=== PATIENT | female | born 1935 | race Native Hawaiian/Other Pacific Islander ===

== ENCOUNTER 2016-04-20 09:04 | Inpatient (IN) | payer OTHER | END 2016-05-21 08:00 | disposition still patient (30) | LOC: PAVB 09:04 | PROVIDERS: ADMIT Internal Medicine | DX: Z51.89 Encounter for other specified aftercare (principal) ==

== ENCOUNTER 2016-05-21 09:00 | Inpatient (IN) | payer OTHER | END 2016-06-21 10:55 | disposition still patient (30) | LOC: PAVB 09:00 | PROVIDERS: ADMIT Internal Medicine | DX: Z51.89 Encounter for other specified aftercare (principal) ==

== ENCOUNTER 2016-06-07 09:02 | Outpatient (CLI) | payer OTHER | END 2016-06-07 19:08 | disposition home or self-care (01) | LOC: RAD 09:02 | DX: R13.19 Other dysphagia (principal) ==

== ENCOUNTER 2016-06-21 11:44 | Inpatient (IN) | payer OTHER | END 2016-07-19 12:34 | disposition still patient (30) | LOC: PAVB 11:44 | PROVIDERS: ADMIT Internal Medicine | DX: Z51.89 Encounter for other specified aftercare (principal) ==

== ENCOUNTER 2016-06-27 02:14 | Outpatient (CLI) | payer OTHER | END 2016-06-27 20:08 | disposition home or self-care (01) | LOC: LAB 02:14 | DX: N39.0 Urinary tract infection, site not specified (principal) | CPT/HCPCS: 81000; 87077; 87086; 87088; 87185; 87186 ==

== ENCOUNTER 2016-07-17 14:04 | Outpatient (CLI) | payer OTHER | END 2016-07-18 02:03 | disposition home or self-care (01) | LOC: MAMMO 14:04 | DX: Z12.31 Encounter for screening mammogram for malignant neoplasm of breast (principal) | CPT/HCPCS: G0202-TC ==

== ENCOUNTER 2016-07-19 12:48 | Inpatient (IN) | payer OTHER | END 2016-08-19 08:10 | disposition still patient (30) | LOC: PAVB 12:48 | PROVIDERS: ADMIT Internal Medicine | DX: Z51.89 Encounter for other specified aftercare (principal) ==

== ENCOUNTER 2016-07-20 06:30 | Outpatient (CLI) | payer OTHER | END 2016-07-20 19:28 | disposition home or self-care (01) | LOC: LAB 06:30 | DX: E11.9 Type 2 diabetes mellitus without complications (principal) | CPT/HCPCS: 36415; 83036 ==

== ENCOUNTER 2016-08-08 04:26 | Outpatient (CLI) | payer OTHER ==
[2016-08-08 05:13] LABS: POTASSIUM 4.9 mmol/L (3.6-5.2)
== END 2016-08-08 19:11 | disposition home or self-care (01) ==
LOC: LAB 04:26
PROVIDERS: Internal Medicine
DX: Z51.81 Encounter for therapeutic drug level monitoring (principal)
CPT/HCPCS: 36415; 80048

== ENCOUNTER 2016-08-13 23:52 | Outpatient (CLI) | payer OTHER | END 2016-08-13 23:59 | disposition home or self-care (01) | LOC: LAB 23:52 | DX: N39.0 Urinary tract infection, site not specified (principal) | CPT/HCPCS: 81000; 87077; 87086; 87088; 87185; 87186 ==

== ENCOUNTER 2016-08-18 08:49 | Outpatient (CLI) | payer OTHER ==
[~2016-08-18] VITALS: Ht 167.6 cm; Wt 90.7 kg
[2016-08-18 09:20] VITALS: BP 147/51; TEMP 97.7
== END 2016-08-18 23:55 | disposition home or self-care (01) ==
LOC: INF 08:49 → RAD 08:49 → INF 20:46 → RAD 23:55
DX: N39.0 Urinary tract infection, site not specified (principal)
CPT/HCPCS: 96365; J3370

== ENCOUNTER 2016-08-19 09:07 | Inpatient (IN) | payer OTHER | END 2016-09-18 09:03 | disposition still patient (30) | LOC: PAVB 09:07 → PAVA 09-15 15:50 | PROVIDERS: ADMIT Internal Medicine | DX: Z51.89 Encounter for other specified aftercare (principal) ==

== ENCOUNTER 2016-08-19 09:17 | Outpatient (CLI) | payer OTHER | END 2016-08-19 20:40 | disposition home or self-care (01) | LOC: INF 09:17 | DX: N39.0 Urinary tract infection, site not specified (principal) | CPT/HCPCS: 96365; J3370 ==

== ENCOUNTER 2016-08-20 09:08 | Outpatient (CLI) | payer OTHER | END 2016-08-20 18:58 | disposition home or self-care (01) | LOC: INF 09:08 | DX: N39.0 Urinary tract infection, site not specified (principal) | CPT/HCPCS: 96365; J3370 ==

== ENCOUNTER 2016-08-21 05:01 | Outpatient (CLI) | payer OTHER ==
[~2016-08-21] VITALS: Ht 30.5 cm; Wt 0.5 kg
[2016-08-21 05:58] LABS: POTASSIUM 5.2 mmol/L (3.6-5.2)
[2016-08-21 11:23] VITALS: BP 157/53; TEMP 98.1
== END 2016-08-21 10:15 | disposition home or self-care (01) ==
LOC: LAB 05:01 → INF 05:01
PROVIDERS: Internal Medicine
DX: N39.0 Urinary tract infection, site not specified (principal); I10 Essential (primary) hypertension
CPT/HCPCS: 36415; 80048; 80202; 96365; J3370

== ENCOUNTER 2016-08-22 10:09 | Outpatient (CLI) | payer OTHER ==
[~2016-08-22] VITALS: Ht 167.6 cm; Wt 90.9 kg
[2016-08-22 10:15] VITALS: BP 127/56; TEMP 98.3
[2016-08-22 12:16] VITALS: BP 142/50; TEMP 98.3
== END 2016-08-22 11:09 | disposition home or self-care (01) ==
LOC: INF 10:09
DX: N39.0 Urinary tract infection, site not specified (principal)
CPT/HCPCS: 96365; J3370

== ENCOUNTER 2016-08-24 09:08 | Outpatient (CLI) | payer OTHER ==
[2016-08-24 10:13] LABS: POTASSIUM 5.5 mmol/L (3.6-5.2)
== END 2016-08-24 19:02 | disposition home or self-care (01) ==
LOC: LAB 09:08 → INF 09:08 → LAB 19:02
PROVIDERS: Internal Medicine
DX: N39.0 Urinary tract infection, site not specified (principal); Z51.81 Encounter for therapeutic drug level monitoring
CPT/HCPCS: 80048; 80202

== ENCOUNTER 2016-08-25 09:59 | Outpatient (CLI) | payer OTHER | END 2016-08-25 19:08 | disposition home or self-care (01) | LOC: LAB 09:59 | DX: N39.0 Urinary tract infection, site not specified (principal) | CPT/HCPCS: 80202 ==

== ENCOUNTER 2016-08-26 08:55 | Outpatient (CLI) | payer OTHER | END 2016-08-26 19:05 | disposition home or self-care (01) | LOC: INF 08:55 | DX: N39.0 Urinary tract infection, site not specified (principal) | CPT/HCPCS: 36415; 80202 ==

== ENCOUNTER 2016-08-29 21:20 | Outpatient (CLI) | payer OTHER ==
[2016-08-29 22:17] LABS: PLATELET COUNT 245 K/uL (152-353)
[2016-08-29 22:29] LABS: POTASSIUM 5.5 mmol/L (3.6-5.2)
== END 2016-08-29 22:30 | disposition home or self-care (01) ==
LOC: LAB 21:20
PROVIDERS: Internal Medicine
DX: R03.1 Nonspecific low blood-pressure reading (principal)
CPT/HCPCS: 36415; 80048; 81000; 85027

== ENCOUNTER 2016-09-01 09:27 | Outpatient (CLI) | payer OTHER | END 2016-09-01 20:26 | disposition home or self-care (01) | LOC: LAB 09:27 → US 09:27 | DX: R33.8 Other retention of urine (principal) | CPT/HCPCS: 81000; 87077; 87086; 87088; 87186 ==

== ENCOUNTER 2016-09-06 12:16 | Outpatient (CLI) | payer OTHER | END 2016-09-06 19:06 | disposition home or self-care (01) | LOC: LAB 12:16 | DX: Z16.24 Resistance to multiple antibiotics (principal) | CPT/HCPCS: 87081 ==

== ENCOUNTER 2016-09-18 09:05 | Inpatient (IN) | payer OTHER | END 2016-10-19 08:09 | disposition still patient (30) | LOC: PAVA 09:05 | PROVIDERS: ADMIT Internal Medicine | DX: Z51.89 Encounter for other specified aftercare (principal) | CPT/HCPCS: 81000 ==

== ENCOUNTER 2016-09-18 13:31 | Outpatient (CLI) | payer OTHER | END 2016-09-18 20:02 | disposition home or self-care (01) | LOC: LAB 13:31 | DX: Z85.038 Personal history of other malignant neoplasm of large intestine (principal) | CPT/HCPCS: 82378 ==

== ENCOUNTER 2016-09-22 14:23 | Outpatient (CLI) | payer OTHER | END 2016-09-22 16:00 | disposition home or self-care (01) | LOC: LAB 14:23 | DX: R30.0 Dysuria (principal) | CPT/HCPCS: 87077; 87086; 87088; 87186 ==

== ENCOUNTER 2016-10-06 08:52 | Outpatient (CLI) | payer OTHER | END 2016-10-06 10:00 | disposition home or self-care (01) | LOC: US 08:52 | DX: R10.11 Right upper quadrant pain (principal) ==

== ENCOUNTER 2016-10-16 22:19 | Outpatient (CLI) | payer OTHER ==
[2016-10-16 22:27] LABS: PLATELET COUNT 313 K/uL (152-353)
[2016-10-16 22:58] LABS: POTASSIUM 4.9 mmol/L (3.6-5.2)
== END 2016-10-16 23:00 | disposition home or self-care (01) ==
LOC: LAB 22:19
PROVIDERS: Internal Medicine
DX: N39.0 Urinary tract infection, site not specified (principal); Z01.812 Encounter for preprocedural laboratory examination
CPT/HCPCS: 36415; 80053; 81000; 85027

== ENCOUNTER 2016-10-19 08:16 | Inpatient (IN) | payer OTHER | END 2016-11-18 14:55 | disposition still patient (30) | LOC: PAVA 08:16 | PROVIDERS: ADMIT Internal Medicine | DX: Z51.89 Encounter for other specified aftercare (principal) ==

== ENCOUNTER 2016-10-26 12:02 | Outpatient (CLI) | payer OTHER | END 2016-10-26 13:05 | disposition home or self-care (01) | LOC: LAB 12:02 | DX: D64.9 Anemia, unspecified (principal) | CPT/HCPCS: 82728 ==

== ENCOUNTER 2016-11-08 20:03 | Outpatient (CLI) | payer OTHER | END 2016-11-08 21:05 | disposition home or self-care (01) | LOC: LAB 20:03 | DX: R30.0 Dysuria (principal); R35.0 Frequency of micturition | CPT/HCPCS: 81000; 87088 ==

== ENCOUNTER 2016-11-15 13:16 | Outpatient (CLI) | payer OTHER | END 2016-11-15 19:35 | disposition home or self-care (01) | LOC: LAB 13:16 | DX: R30.0 Dysuria (principal) | CPT/HCPCS: 81000; 87088 ==

== ENCOUNTER 2016-11-18 15:02 | Inpatient (IN) | payer OTHER | END 2016-12-19 08:28 | disposition still patient (30) | LOC: PAVA 15:02 | PROVIDERS: ADMIT Internal Medicine | DX: Z51.89 Encounter for other specified aftercare (principal) ==

== ENCOUNTER 2016-12-13 09:27 | Outpatient (CLI) | payer OTHER | END 2016-12-13 11:00 | disposition home or self-care (01) | LOC: MRI 09:27 | DX: M54.5 Low back pain (principal); M54.16 Radiculopathy, lumbar region ==

== ENCOUNTER 2016-12-18 15:32 | Outpatient (CLI) | payer OTHER | END 2016-12-18 16:45 | disposition home or self-care (01) | LOC: LAB 15:32 | DX: R35.0 Frequency of micturition (principal); R30.0 Dysuria | CPT/HCPCS: 81000; 87077; 87086; 87088; 87186 ==

== ENCOUNTER 2016-12-19 08:45 | Inpatient (IN) | payer OTHER | END 2017-01-19 08:09 | disposition still patient (30) | LOC: PAVA 08:45 | PROVIDERS: ADMIT Internal Medicine | DX: Z51.89 Encounter for other specified aftercare (principal) ==

== ENCOUNTER 2016-12-20 09:09 | Day surgery (SDC) | payer OTHER | END 2016-12-20 14:20 | disposition home or self-care (01) | LOC: OR 09:09 | PROC: 0HQEXZZ Repair Left Lower Arm Skin, External Approach (ICD-10-PCS; principal; 2016-12-20) | PROC: 0HBEXZZ Excision of Left Lower Arm Skin, External Approach (ICD-10-PCS; 2016-12-20) | DX: L57.0 Actinic keratosis (principal); D22.62 Melanocytic nevi of left upper limb, including shoulder; L90.5 Scar conditions and fibrosis of skin; Z98.890 Other specified postprocedural states | CPT/HCPCS: J0690; J2001; J2250; J2704; J3010; S0028 ==

== ENCOUNTER 2016-12-27 08:54 | Outpatient (CLI) | payer OTHER | END 2016-12-27 10:00 | disposition home or self-care (01) | LOC: US 08:54 | DX: N39.0 Urinary tract infection, site not specified (principal) ==

== ENCOUNTER 2017-01-19 05:41 | Outpatient (CLI) | payer OTHER | END 2017-01-19 06:45 | disposition home or self-care (01) | LOC: LAB 05:41 | DX: E11.9 Type 2 diabetes mellitus without complications (principal) | CPT/HCPCS: 83036 ==

== ENCOUNTER 2017-01-19 08:17 | Inpatient (IN) | payer OTHER | END 2017-02-18 09:07 | disposition still patient (30) | LOC: PAVA 08:17 | PROVIDERS: ADMIT Internal Medicine | DX: Z51.89 Encounter for other specified aftercare (principal) ==

== ENCOUNTER 2017-02-18 09:13 | Inpatient (IN) | payer OTHER | END 2017-03-21 09:49 | disposition still patient (30) | LOC: PAVA 09:13 | PROVIDERS: ADMIT Internal Medicine | CPT/HCPCS: 81000; 87088 ==

== ENCOUNTER 2017-03-14 15:13 | Outpatient (CLI) | payer OTHER | END 2017-03-14 16:15 | disposition home or self-care (01) | LOC: RAD 15:13 | DX: R05 Cough (principal) ==

== ENCOUNTER 2017-03-21 10:30 | Inpatient (IN) | payer OTHER | END 2017-04-20 08:10 | disposition still patient (30) | LOC: PAVA 10:30 | PROVIDERS: ADMIT Internal Medicine ==

== ENCOUNTER 2017-04-20 08:42 | Inpatient (IN) | payer OTHER | END 2017-05-21 08:24 | disposition still patient (30) | LOC: PAVA 08:42 | PROVIDERS: ADMIT Internal Medicine ==

== ENCOUNTER 2017-04-24 05:23 | Outpatient (CLI) | payer OTHER ==
[2017-04-24 06:43] LABS: PLATELET COUNT 232 K/uL (152-353)
[2017-04-24 07:25] LABS: POTASSIUM 4.7 mmol/L (3.6-5.2)
== END 2017-04-24 06:25 | disposition home or self-care (01) ==
LOC: LAB 05:23
PROVIDERS: Internal Medicine
DX: E11.9 Type 2 diabetes mellitus without complications (principal); D64.89 Other specified anemias; Z85.038 Personal history of other malignant neoplasm of large intestine
CPT/HCPCS: 80053; 82378; 83036; 83540; 84443; 85027

== ENCOUNTER 2017-05-21 08:41 | Inpatient (IN) | payer OTHER | END 2017-06-21 08:28 | disposition still patient (30) | LOC: PAVA 08:41 | PROVIDERS: ADMIT Internal Medicine ==

== ENCOUNTER 2017-05-22 13:21 | Outpatient (CLI) | payer OTHER | END 2017-05-22 21:22 | disposition home or self-care (01) | LOC: LAB 13:21 | DX: N39.0 Urinary tract infection, site not specified (principal) | CPT/HCPCS: 81000; 87088 ==

== ENCOUNTER 2017-06-07 08:24 | Outpatient (CLI) | payer OTHER | END 2017-06-07 19:18 | disposition home or self-care (01) | LOC: US 08:24 | DX: R10.2 Pelvic and perineal pain (principal) ==

== ENCOUNTER 2017-06-21 08:59 | Inpatient (IN) | payer OTHER | END 2017-07-19 08:05 | disposition still patient (30) | LOC: PAVA 08:59 | PROVIDERS: ADMIT Internal Medicine ==

== ENCOUNTER 2017-06-24 08:32 | Outpatient (CLI) | payer OTHER | END 2017-06-24 23:54 | disposition home or self-care (01) | LOC: RAD 08:32 | DX: M25.551 Pain in right hip (principal) ==

== ENCOUNTER 2017-07-07 23:44 | Outpatient (CLI) | payer OTHER | END 2017-07-07 23:59 | disposition home or self-care (01) | LOC: RESP 23:44 | DX: R07.89 Other chest pain (principal) ==

== ENCOUNTER 2017-07-19 08:36 | Inpatient (IN) | payer OTHER | END 2017-08-19 08:00 | disposition still patient (30) | LOC: PAVA 08:36 | PROVIDERS: ADMIT Internal Medicine ==

== ENCOUNTER 2017-07-27 05:39 | Outpatient (CLI) | payer OTHER | END 2017-07-27 21:17 | disposition home or self-care (01) | LOC: LAB 05:39 | DX: E11.9 Type 2 diabetes mellitus without complications (principal) | CPT/HCPCS: 83036 ==

== ENCOUNTER 2017-08-19 09:00 | Inpatient (IN) | payer OTHER | END 2017-09-18 08:09 | disposition still patient (30) | LOC: PAVA 09:00 | PROVIDERS: ADMIT Internal Medicine ==

== ENCOUNTER 2017-09-18 08:17 | Inpatient (IN) | payer OTHER | END 2017-10-19 08:14 | disposition still patient (30) | LOC: PAVA 08:17 | PROVIDERS: ADMIT Internal Medicine ==

== ENCOUNTER 2017-09-20 07:55 | Outpatient (CLI) | payer OTHER | END 2017-09-20 22:27 | disposition home or self-care (01) | LOC: LAB 07:55 | DX: Z85.038 Personal history of other malignant neoplasm of large intestine (principal) | CPT/HCPCS: 36415; 82378 ==

== ENCOUNTER 2017-10-19 08:04 | Outpatient (CLI) | payer OTHER ==
[2017-10-19 09:06] LABS: PLATELET COUNT 270 K/uL (152-353)
[2017-10-19 09:48] LABS: POTASSIUM 4.7 mmol/L (3.6-5.2)
== END 2017-10-19 19:20 | disposition home or self-care (01) ==
LOC: LAB 08:04
PROVIDERS: Internal Medicine
DX: E11.9 Type 2 diabetes mellitus without complications (principal); D64.89 Other specified anemias
CPT/HCPCS: 36415; 80053; 83036; 83540; 84443; 85027

== ENCOUNTER 2017-10-19 08:26 | Inpatient (IN) | payer OTHER | END 2017-11-18 14:13 | disposition still patient (30) | LOC: PAVA 08:26 | PROVIDERS: ADMIT Internal Medicine ==

== ENCOUNTER 2017-11-18 14:23 | Inpatient (IN) | payer OTHER | END 2017-12-19 08:00 | disposition still patient (30) | LOC: PAVA 14:23 | PROVIDERS: ADMIT Internal Medicine ==

== ENCOUNTER 2017-12-19 09:00 | Inpatient (IN) | payer OTHER | END 2018-01-19 09:55 | disposition still patient (30) | LOC: PAVA 09:00 | PROVIDERS: ADMIT Internal Medicine ==

== ENCOUNTER 2018-01-19 10:01 | Inpatient (IN) | payer OTHER | END 2018-02-18 08:38 | disposition still patient (30) | LOC: PAVA 10:01 | PROVIDERS: ADMIT Internal Medicine ==

== ENCOUNTER 2018-01-28 04:52 | Outpatient (CLI) | payer OTHER | END 2018-01-28 23:19 | disposition home or self-care (01) | LOC: LAB 04:52 | DX: R73.09 Other abnormal glucose (principal) | CPT/HCPCS: 83036 ==

== ENCOUNTER 2018-02-18 08:47 | Inpatient (IN) | payer OTHER | END 2018-03-21 08:09 | disposition still patient (30) | LOC: PAVA 08:47 | PROVIDERS: ADMIT Internal Medicine | CPT/HCPCS: J1580 ==

== ENCOUNTER 2018-03-11 04:13 | Outpatient (CLI) | payer OTHER | END 2018-03-11 19:49 | disposition home or self-care (01) | LOC: LAB 04:13 | DX: N39.0 Urinary tract infection, site not specified (principal) | CPT/HCPCS: 81000; 87077; 87086; 87088; 87186 ==

== ENCOUNTER 2018-03-13 14:42 | Outpatient (CLI) | payer OTHER ==
[~2018-03-13] VITALS: Ht 167.6 cm; Wt 92.5 kg
== END 2018-03-13 21:01 | disposition home or self-care (01) ==
LOC: INF 14:42
DX: N39.0 Urinary tract infection, site not specified (principal)
CPT/HCPCS: 96365; J1580

== ENCOUNTER 2018-03-14 08:31 | Outpatient (CLI) | payer OTHER ==
[~2018-03-14] VITALS: Ht 167.6 cm; Wt 92.5 kg
== END 2018-03-14 19:18 | disposition home or self-care (01) ==
LOC: INF 08:31
DX: N39.0 Urinary tract infection, site not specified (principal)
CPT/HCPCS: 96365; 96366; J1580

== ENCOUNTER 2018-03-15 07:58 | Outpatient (CLI) | payer OTHER ==
[~2018-03-15] VITALS: Ht 167.6 cm; Wt 92.5 kg
== END 2018-03-15 19:22 | disposition home or self-care (01) ==
LOC: INF 07:58
DX: N39.0 Urinary tract infection, site not specified (principal)
CPT/HCPCS: 96365; 96366; J1580

== ENCOUNTER 2018-03-16 07:43 | Outpatient (CLI) | payer OTHER ==
[~2018-03-16] VITALS: Ht 30.5 cm; Wt 0.5 kg
== END 2018-03-16 19:47 | disposition home or self-care (01) ==
LOC: INF 07:43
DX: N39.0 Urinary tract infection, site not specified (principal)
CPT/HCPCS: 96365; 96366; J1580

== ENCOUNTER 2018-03-17 08:06 | Outpatient (CLI) | payer OTHER ==
[~2018-03-17] VITALS: Ht 30.5 cm; Wt 0.5 kg
== END 2018-03-17 19:38 | disposition home or self-care (01) ==
LOC: INF 08:06
DX: N39.0 Urinary tract infection, site not specified (principal)
CPT/HCPCS: 96365; 96366; J1580

== ENCOUNTER 2018-03-18 08:01 | Outpatient (CLI) | payer OTHER ==
[~2018-03-18] VITALS: Ht 30.5 cm; Wt 0.5 kg
== END 2018-03-18 19:52 | disposition home or self-care (01) ==
LOC: INF 08:01
DX: N39.0 Urinary tract infection, site not specified (principal)
CPT/HCPCS: 96365; 96366; J1580

== ENCOUNTER 2018-03-19 07:48 | Outpatient (CLI) | payer OTHER | END 2018-03-19 21:18 | disposition home or self-care (01) | LOC: INF 07:48 | DX: N39.0 Urinary tract infection, site not specified (principal) | CPT/HCPCS: 96365; 96366; J1580 ==

== ENCOUNTER 2018-03-20 08:22 | Outpatient (CLI) | payer OTHER | END 2018-03-20 19:48 | disposition home or self-care (01) | LOC: INF 08:22 | DX: N39.0 Urinary tract infection, site not specified (principal) | CPT/HCPCS: 96365; 96366; J1580 ==

== ENCOUNTER 2018-03-21 08:08 | Outpatient (CLI) | payer OTHER | END 2018-03-21 21:50 | disposition home or self-care (01) | LOC: INF 08:08 | DX: N39.0 Urinary tract infection, site not specified (principal) | CPT/HCPCS: 96365; 96366; J1580 ==

== ENCOUNTER 2018-03-21 08:16 | Inpatient (IN) | payer OTHER | END 2018-04-20 08:03 | disposition still patient (30) | LOC: PAVA 08:16 | PROVIDERS: ADMIT Internal Medicine | CPT/HCPCS: J0713 ==

== ENCOUNTER 2018-03-22 08:01 | Outpatient (CLI) | payer OTHER | END 2018-03-22 21:10 | disposition home or self-care (01) | LOC: INF 08:01 | DX: N39.0 Urinary tract infection, site not specified (principal) | CPT/HCPCS: 96365; 96366; J1580 ==

== ENCOUNTER 2018-03-23 08:00 | Outpatient (CLI) | payer OTHER | END 2018-03-23 19:28 | disposition home or self-care (01) | LOC: INF 08:00 | DX: N39.0 Urinary tract infection, site not specified (principal) | CPT/HCPCS: J1580 ==

== ENCOUNTER 2018-03-26 14:49 | Outpatient (CLI) | payer OTHER | END 2018-03-26 22:21 | disposition home or self-care (01) | LOC: LAB 14:49 | DX: R30.0 Dysuria (principal) | CPT/HCPCS: 81000; 87077; 87086; 87088; 87186 ==

== ENCOUNTER 2018-03-30 08:56 | Outpatient (CLI) | payer OTHER | END 2018-03-30 20:36 | disposition home or self-care (01) | LOC: INF 08:56 | DX: N39.0 Urinary tract infection, site not specified (principal) | CPT/HCPCS: 96365; 96366; J0713 ==

== ENCOUNTER 2018-03-31 11:32 | Outpatient (CLI) | payer OTHER | END 2018-03-31 19:28 | disposition home or self-care (01) | LOC: INF 11:32 | DX: N39.0 Urinary tract infection, site not specified (principal) | CPT/HCPCS: 96365; 96366; J0713 ==

== ENCOUNTER 2018-04-01 08:03 | Outpatient (CLI) | payer OTHER | END 2018-04-01 22:50 | disposition home or self-care (01) | LOC: INF 08:03 | DX: N39.0 Urinary tract infection, site not specified (principal) | CPT/HCPCS: 96365; 96366; J0713 ==

== ENCOUNTER 2018-04-02 09:59 | Outpatient (CLI) | payer OTHER ==
[2018-04-02 10:04] VITALS: BP 147/69; TEMP 97.7
[2018-04-02 11:37] VITALS: BP 140/77; TEMP 97.7
== END 2018-04-02 22:06 | disposition home or self-care (01) ==
LOC: INF 09:59
DX: N39.0 Urinary tract infection, site not specified (principal)
CPT/HCPCS: 96365; 96366; J0713

== ENCOUNTER 2018-04-03 10:00 | Outpatient (CLI) | payer OTHER ==
[~2018-04-03] VITALS: Ht 167.6 cm; Wt 93.0 kg
== END 2018-04-03 19:56 | disposition home or self-care (01) ==
LOC: INF 10:00
DX: N39.0 Urinary tract infection, site not specified (principal)
CPT/HCPCS: 96365; 96366; J0713

== ENCOUNTER 2018-04-04 09:21 | Outpatient (CLI) | payer OTHER ==
[~2018-04-04] VITALS: Ht 167.6 cm; Wt 92.1 kg
== END 2018-04-04 19:32 | disposition home or self-care (01) ==
LOC: INF 09:21
DX: N39.0 Urinary tract infection, site not specified (principal)
CPT/HCPCS: J0713

== ENCOUNTER 2018-04-05 08:30 | Outpatient (CLI) | payer OTHER | END 2018-04-05 19:13 | disposition home or self-care (01) | LOC: INF 08:30 | DX: N39.0 Urinary tract infection, site not specified (principal) | CPT/HCPCS: 96365; J0713 ==

== ENCOUNTER 2018-04-06 10:01 | Outpatient (CLI) | payer OTHER | END 2018-04-06 19:58 | disposition home or self-care (01) | LOC: INF 10:01 | DX: N39.0 Urinary tract infection, site not specified (principal) | CPT/HCPCS: 96365; 96366 ==

== ENCOUNTER 2018-04-07 10:03 | Outpatient (CLI) | payer OTHER | END 2018-04-07 19:12 | disposition home or self-care (01) | LOC: INF 10:03 | DX: N39.0 Urinary tract infection, site not specified (principal) | CPT/HCPCS: 96365; 96366; J0713 ==

== ENCOUNTER 2018-04-08 10:16 | Outpatient (CLI) | payer OTHER | END 2018-04-08 19:45 | disposition home or self-care (01) | LOC: INF 10:16 | DX: N39.0 Urinary tract infection, site not specified (principal) | CPT/HCPCS: 96365; J0713 ==

== ENCOUNTER 2018-04-10 05:08 | Outpatient (CLI) | payer OTHER ==
[2018-04-10 05:54] LABS: PLATELET COUNT 224 K/uL (152-353)
[2018-04-10 06:35] LABS: POTASSIUM 3.8 mmol/L (3.6-5.2)
== END 2018-04-10 19:33 | disposition home or self-care (01) ==
LOC: LAB 05:08
PROVIDERS: Internal Medicine
DX: N39.0 Urinary tract infection, site not specified (principal)
CPT/HCPCS: 36415; 80053; 81000; 85027

== ENCOUNTER 2018-04-16 08:51 | Outpatient (CLI) | payer OTHER | END 2018-04-16 21:02 | disposition home or self-care (01) | LOC: NM 08:51 | DX: I25.10 Atherosclerotic heart disease of native coronary artery without angina pectoris (principal); I34.0 Nonrheumatic mitral (valve) insufficiency; I65.29 Occlusion and stenosis of unspecified carotid artery | CPT/HCPCS: 93306; A9500; J2785 ==

== ENCOUNTER 2018-04-17 03:28 | Outpatient (CLI) | payer OTHER | END 2018-04-17 20:08 | disposition home or self-care (01) | LOC: LAB 03:28 | DX: E03.9 Hypothyroidism, unspecified (principal) | CPT/HCPCS: 84443 ==

== ENCOUNTER 2018-04-20 08:10 | Inpatient (IN) | payer OTHER ==
[2018-04-25 05:35] LABS: PLATELET COUNT 235 K/uL (152-353)
[2018-04-25 05:51] LABS: POTASSIUM 4.2 mmol/L (3.6-5.2)
== END 2018-05-21 10:19 | disposition still patient (30) ==
LOC: PAVA 08:10
PROVIDERS: ADMIT Internal Medicine
CPT/HCPCS: 80053; 83036; 83540; 84443; 85027

== ENCOUNTER 2018-04-25 03:37 | Outpatient (CLI) | payer OTHER | END 2018-04-25 23:30 | disposition home or self-care (01) | LOC: LAB 03:37 | DX: E11.9 Type 2 diabetes mellitus without complications (principal); D64.9 Anemia, unspecified ==

== ENCOUNTER 2018-04-26 14:43 | Outpatient (CLI) | payer OTHER | END 2018-04-26 23:19 | disposition home or self-care (01) | LOC: RAD 14:43 | DX: Z78.0 Asymptomatic menopausal state (principal) ==

== ENCOUNTER 2018-05-21 10:29 | Inpatient (IN) | payer OTHER | END 2018-06-21 14:06 | disposition still patient (30) | LOC: PAVA 10:29 | PROVIDERS: ADMIT Internal Medicine ==

== ENCOUNTER 2018-06-14 07:13 | Outpatient (CLI) | payer OTHER ==
[2018-06-14 10:42] LABS: PLATELET COUNT 262 K/uL (152-353)
[2018-06-14 10:45] LABS: POTASSIUM 3.8 mmol/L (3.6-5.2)
== END 2018-06-14 18:54 | disposition home or self-care (01) ==
LOC: LAB 07:13
PROVIDERS: Internal Medicine
DX: Z01.812 Encounter for preprocedural laboratory examination (principal); R73.9 Hyperglycemia, unspecified; Z01.810 Encounter for preprocedural cardiovascular examination
CPT/HCPCS: 36415; 80053; 85027

== ENCOUNTER 2018-06-21 14:10 | Inpatient (IN) | payer OTHER | END 2018-07-19 09:12 | disposition still patient (30) | LOC: PAVA 14:10 | PROVIDERS: ADMIT Internal Medicine ==

== ENCOUNTER 2018-07-17 06:45 | Outpatient (CLI) | payer OTHER | END 2018-07-17 19:40 | disposition home or self-care (01) | LOC: LAB 06:45 | DX: Z79.899 Other long term (current) drug therapy (principal) | CPT/HCPCS: 36415; 82565 ==

== ENCOUNTER 2018-07-19 09:23 | Inpatient (IN) | payer OTHER | END 2018-08-19 07:50 | disposition still patient (30) | LOC: PAVA 09:23 | PROVIDERS: ADMIT Internal Medicine ==

== ENCOUNTER 2018-07-19 16:48 | Outpatient (CLI) | payer OTHER | END 2018-07-19 22:25 | disposition home or self-care (01) | LOC: LAB 16:48 | DX: R82.90 Unspecified abnormal findings in urine (principal) | CPT/HCPCS: 81000 ==

== ENCOUNTER 2018-07-22 15:35 | Outpatient (CLI) | payer OTHER | END 2018-07-22 22:16 | disposition home or self-care (01) | LOC: RAD 15:35 | DX: M25.551 Pain in right hip (principal) ==

== ENCOUNTER 2018-07-29 06:16 | Outpatient (CLI) | payer OTHER | END 2018-07-29 19:27 | disposition home or self-care (01) | LOC: LAB 06:16 | DX: R27.0 Ataxia, unspecified (principal); E11.9 Type 2 diabetes mellitus without complications; D64.9 Anemia, unspecified; E78.00 Pure hypercholesterolemia, unspecified; D50.9 Iron deficiency anemia, unspecified; N32.81 Overactive bladder; Z85.038 Personal history of other malignant neoplasm of large intestine; I25.10 Atherosclerotic heart disease of native coronary artery without angina pectoris; K74.60 Unspecified cirrhosis of liver | CPT/HCPCS: 83036 ==

== ENCOUNTER 2018-08-19 08:04 | Inpatient (IN) | payer OTHER | END 2018-09-18 09:28 | disposition still patient (30) | LOC: PAVA 08:04 | PROVIDERS: ADMIT Internal Medicine ==

== ENCOUNTER 2018-09-18 10:26 | Inpatient (IN) | payer OTHER | END 2018-10-19 08:11 | disposition still patient (30) | LOC: PAVA 10:26 | PROVIDERS: ADMIT Internal Medicine | DX: Z51.89 Encounter for other specified aftercare (principal) ==

== ENCOUNTER 2018-09-19 04:16 | Outpatient (CLI) | payer OTHER | END 2018-09-19 19:45 | LOC: LAB 04:16 | DX: Z85.038 Personal history of other malignant neoplasm of large intestine (principal) | CPT/HCPCS: 82378 ==

== ENCOUNTER 2018-10-03 10:34 | Outpatient (CLI) | payer OTHER | END 2018-10-03 19:14 | disposition home or self-care (01) | LOC: LAB 10:34 | DX: R79.89 Other specified abnormal findings of blood chemistry (principal) | CPT/HCPCS: 82565 ==

== ENCOUNTER 2018-10-19 08:17 | Inpatient (IN) | payer OTHER | END 2018-11-18 08:19 | disposition still patient (30) | LOC: PAVA 08:17 | PROVIDERS: ADMIT Internal Medicine ==

== ENCOUNTER 2018-10-21 04:09 | Outpatient (CLI) | payer OTHER ==
[2018-10-21 05:29] LABS: PLATELET COUNT 261 K/uL (152-353)
[2018-10-21 06:38] LABS: POTASSIUM 4.1 mmol/L (3.6-5.2)
== END 2018-10-21 19:07 | disposition home or self-care (01) ==
LOC: LAB 04:09
PROVIDERS: Internal Medicine
DX: E11.9 Type 2 diabetes mellitus without complications (principal); E03.8 Other specified hypothyroidism; M25.551 Pain in right hip; R26.89 Other abnormalities of gait and mobility
CPT/HCPCS: 36415; 80053; 83036; 83540; 84443; 85027

== ENCOUNTER 2018-11-18 08:45 | Inpatient (IN) | payer OTHER | END 2018-12-19 09:01 | disposition still patient (30) | LOC: PAVA 08:45 | PROVIDERS: ADMIT Internal Medicine ==

== ENCOUNTER 2018-12-19 09:12 | Inpatient (IN) | payer OTHER | END 2019-01-19 15:56 | disposition still patient (30) | LOC: PAVA 09:12 | PROVIDERS: ADMIT Internal Medicine ==

== ENCOUNTER 2019-01-19 16:21 | Inpatient (IN) | payer OTHER | END 2019-02-18 08:02 | disposition still patient (30) | LOC: PAVA 16:21 | PROVIDERS: ADMIT Internal Medicine ==

== ENCOUNTER 2019-01-21 06:17 | Outpatient (CLI) | payer OTHER | END 2019-01-21 22:47 | disposition home or self-care (01) | LOC: LAB 06:17 | DX: E11.9 Type 2 diabetes mellitus without complications (principal) | CPT/HCPCS: 83036 ==

== ENCOUNTER 2019-02-18 08:36 | Inpatient (IN) | payer OTHER | END 2019-03-21 08:30 | disposition still patient (30) | LOC: PAVA 08:36 | PROVIDERS: ADMIT Internal Medicine ==

== ENCOUNTER 2019-03-21 10:11 | Inpatient (IN) | payer OTHER | END 2019-04-20 08:00 | disposition still patient (30) | LOC: PAVA 10:11 | PROVIDERS: ADMIT Internal Medicine ==

== ENCOUNTER 2019-04-09 06:10 | Emergency (ER) | payer OTHER ==
[~2019-04-09] VITALS: Ht 167.6 cm; Wt 88.0 kg
[2019-04-09 06:12] VITALS: TEMP 97.7
[2019-04-09 06:32] LABS: PLATELET COUNT 255 K/uL (152-353)
[2019-04-09 06:39] LABS: POTASSIUM 3.4 mmol/L (3.6-5.2); SODIUM 137 mmol/L (136-145)
[2019-04-09 08:46] VITALS: BP 155/51
== END 2019-04-09 09:06 ==
LOC: ED 06:10
PROVIDERS: Emergency Medicine
DX: E86.0 Dehydration (principal); I95.1 Orthostatic hypotension; N39.0 Urinary tract infection, site not specified; D50.8 Other iron deficiency anemias; I45.19 Other right bundle-branch block; M79.661 Pain in right lower leg; R29.898 Other symptoms and signs involving the musculoskeletal system
CPT/HCPCS: 36415; 80053; 81000; 82272; 83605; 83735; 84484; 85027; 87040; 87077; 87086; 87088; 87186; 93005; 96365; 99284; J0696

== ENCOUNTER 2019-04-09 13:09 | Outpatient (CLI) | payer OTHER | END 2019-04-09 20:14 | disposition home or self-care (01) | LOC: US 13:09 | DX: M79.661 Pain in right lower leg (principal); R29.898 Other symptoms and signs involving the musculoskeletal system ==

== ENCOUNTER 2019-04-20 08:30 | Inpatient (IN) | payer OTHER | END 2019-05-21 07:58 | disposition still patient (30) | LOC: PAVA 08:30 | PROVIDERS: ADMIT Internal Medicine ==

== ENCOUNTER 2019-04-22 05:26 | Outpatient (CLI) | payer OTHER ==
[2019-04-22 06:11] LABS: PLATELET COUNT 215 K/uL (152-353)
[2019-04-22 06:35] LABS: POTASSIUM 4.7 mmol/L (3.6-5.2)
== END 2019-04-22 20:12 | disposition home or self-care (01) ==
LOC: LAB 05:26
PROVIDERS: Internal Medicine
DX: E11.9 Type 2 diabetes mellitus without complications (principal); E03.8 Other specified hypothyroidism
CPT/HCPCS: 80053; 83036; 83540; 84443; 85027

== ENCOUNTER 2019-04-24 10:53 | Outpatient (CLI) | payer OTHER | END 2019-04-24 19:48 | disposition home or self-care (01) | LOC: RAD 10:53 | DX: M25.551 Pain in right hip (principal); W19.XXXA Unspecified fall, initial encounter ==

== ENCOUNTER 2019-04-30 16:21 | Outpatient (CLI) | payer OTHER | END 2019-04-30 21:46 | disposition home or self-care (01) | LOC: LAB 16:21 | DX: N39.0 Urinary tract infection, site not specified (principal); R82.998 Other abnormal findings in urine | CPT/HCPCS: 87077; 87086; 87088; 87186 ==

== ENCOUNTER 2019-05-21 05:39 | Outpatient (CLI) | payer OTHER | END 2019-05-21 22:01 | disposition home or self-care (01) | LOC: LAB 05:39 | PROVIDERS: Internal Medicine | DX: E78.49 Other hyperlipidemia (principal); E11.9 Type 2 diabetes mellitus without complications; D64.89 Other specified anemias | CPT/HCPCS: 80061 ==

== ENCOUNTER 2019-05-21 08:03 | Inpatient (IN) | payer OTHER | END 2019-06-21 09:29 | disposition still patient (30) | LOC: PAVA 08:03 | PROVIDERS: ADMIT Internal Medicine ==

== ENCOUNTER 2019-06-21 09:35 | Inpatient (IN) | payer OTHER | END 2019-07-20 12:43 | disposition still patient (30) | LOC: PAVA 09:35 | PROVIDERS: ADMIT Internal Medicine ==

== ENCOUNTER 2019-06-27 15:17 | Outpatient (CLI) | payer OTHER | END 2019-06-27 21:22 | disposition home or self-care (01) | LOC: LAB 15:17 | DX: R10.2 Pelvic and perineal pain (principal); R82.998 Other abnormal findings in urine | CPT/HCPCS: 81000; 87077; 87086; 87088; 87186 ==

== ENCOUNTER 2019-07-03 08:45 | Outpatient (CLI) | payer OTHER | END 2019-07-03 19:44 | disposition home or self-care (01) | LOC: CT 08:45 | DX: R42 Dizziness and giddiness (principal); W18.39XA Other fall on same level, initial encounter ==

== ENCOUNTER 2019-07-20 12:50 | Inpatient (IN) | payer OTHER | END 2019-08-20 08:56 | disposition still patient (30) | LOC: PAVA 12:50 | PROVIDERS: ADMIT Internal Medicine ==

== ENCOUNTER 2019-07-21 05:19 | Outpatient (CLI) | payer OTHER | END 2019-07-21 19:05 | disposition home or self-care (01) | LOC: LAB 05:19 | DX: E11.9 Type 2 diabetes mellitus without complications (principal) | CPT/HCPCS: 83036 ==

== ENCOUNTER 2019-08-20 09:08 | Inpatient (IN) | payer OTHER | END 2019-09-19 07:58 | disposition still patient (30) | LOC: PAVA 09:08 | PROVIDERS: ADMIT Internal Medicine ==

== ENCOUNTER 2019-09-19 07:01 | Outpatient (CLI) | payer OTHER | END 2019-09-19 21:26 | disposition home or self-care (01) | LOC: LAB 07:01 | DX: Z85.038 Personal history of other malignant neoplasm of large intestine (principal) | CPT/HCPCS: 36415; 82378 ==

== ENCOUNTER 2019-09-19 08:22 | Inpatient (IN) | payer OTHER | END 2019-10-20 08:10 | disposition still patient (30) | LOC: PAVA 08:22 | PROVIDERS: ADMIT Internal Medicine | CPT/HCPCS: 87635; U0002 ==

== ENCOUNTER 2019-10-01 10:57 | Outpatient (CLI) | payer OTHER ==
[2019-10-01 12:33] LABS: PLATELET COUNT 267 K/uL (152-353)
[2019-10-01 14:27] LABS: POTASSIUM 3.5 mmol/L (3.6-5.2)
== END 2019-10-01 22:22 | disposition home or self-care (01) ==
LOC: RESP 10:57 → LAB 10:57
PROVIDERS: Internal Medicine
DX: U07.1 COVID-19 (principal); Z79.899 Other long term (current) drug therapy
CPT/HCPCS: 36415; 80053; 83615; 85027; 85379; 86140; 93005

== ENCOUNTER 2019-10-10 03:08 | Outpatient (CLI) | payer OTHER | END 2019-10-10 23:00 | disposition home or self-care (01) | LOC: RAD 03:08 | DX: U07.1 COVID-19 (principal); M62.81 Muscle weakness (generalized); W18.39XA Other fall on same level, initial encounter; S09.8XXA Other specified injuries of head, initial encounter ==

== ENCOUNTER 2019-10-10 10:29 | Outpatient (CLI) | payer OTHER | END 2019-10-10 23:05 | disposition home or self-care (01) | LOC: RAD 10:29 | DX: M25.571 Pain in right ankle and joints of right foot (principal); M25.561 Pain in right knee ==

== ENCOUNTER 2019-10-10 13:46 | Emergency (ER) | payer OTHER ==
[~2019-10-10] VITALS: Ht 167.6 cm; Wt 88.0 kg
[2019-10-10 13:46] VITALS: TEMP 97.9
[2019-10-10 16:50] VITALS: BP 168/71
== END 2019-10-10 17:20 ==
LOC: ED 13:46
PROC: 2W3QX1Z Immobilization of Right Lower Leg using Splint (ICD-10-PCS; principal; 2019-10-10)
DX: S82.61XA Displaced fracture of lateral malleolus of right fibula, initial encounter for closed fracture (principal); W18.39XA Other fall on same level, initial encounter; Y92.128 Other place in nursing home as the place of occurrence of the external cause
CPT/HCPCS: 99283

== ENCOUNTER 2019-10-20 07:30 | Outpatient (CLI) | payer OTHER ==
[2019-10-20 08:09] LABS: PLATELET COUNT 493 K/uL (152-353)
[2019-10-20 08:37] LABS: POTASSIUM 4.3 mmol/L (3.6-5.2)
== END 2019-10-20 19:50 | disposition home or self-care (01) ==
LOC: LAB 07:30 → RAD 07:30 → LAB 19:50
PROVIDERS: Internal Medicine
DX: E11.9 Type 2 diabetes mellitus without complications (principal); D50.8 Other iron deficiency anemias; E03.8 Other specified hypothyroidism; S82.891A Other fracture of right lower leg, initial encounter for closed fracture
CPT/HCPCS: 80053; 83036; 83540; 84443; 85027

== ENCOUNTER 2019-10-20 08:16 | Inpatient (IN) | payer OTHER | END 2019-11-19 08:24 | disposition still patient (30) | LOC: PAVA 08:16 | PROVIDERS: ADMIT Internal Medicine | CPT/HCPCS: 87635; U0002 ==

== ENCOUNTER 2019-10-21 18:08 | Outpatient (CLI) | payer OTHER | END 2019-10-21 19:16 | disposition home or self-care (01) | LOC: LAB 18:08 | DX: N31.8 Other neuromuscular dysfunction of bladder (principal); R82.998 Other abnormal findings in urine | CPT/HCPCS: 81000; 87086; 87088 ==

== ENCOUNTER 2019-10-29 10:05 | Outpatient (CLI) | payer OTHER | END 2019-10-29 19:16 | disposition home or self-care (01) | LOC: RAD 10:05 | DX: M25.571 Pain in right ankle and joints of right foot (principal); S82.891A Other fracture of right lower leg, initial encounter for closed fracture ==

== ENCOUNTER 2019-11-19 08:37 | Inpatient (IN) | payer OTHER | END 2019-12-20 08:21 | disposition still patient (30) | LOC: PAVA 08:37 | PROVIDERS: ADMIT Internal Medicine ==

== ENCOUNTER 2019-11-19 10:21 | Outpatient (CLI) | payer OTHER | END 2019-11-19 22:05 | disposition home or self-care (01) | LOC: US 10:21 | DX: I25.10 Atherosclerotic heart disease of native coronary artery without angina pectoris (principal); I10 Essential (primary) hypertension; I65.23 Occlusion and stenosis of bilateral carotid arteries; I35.1 Nonrheumatic aortic (valve) insufficiency ==

== ENCOUNTER 2019-12-03 14:49 | Outpatient (CLI) | payer OTHER | END 2019-12-03 20:29 | disposition home or self-care (01) | LOC: RAD 14:49 | DX: M25.571 Pain in right ankle and joints of right foot (principal) ==

== ENCOUNTER 2019-12-16 10:56 | Outpatient (CLI) | payer OTHER | END 2019-12-16 21:24 | disposition home or self-care (01) | LOC: MAMMO 10:56 | DX: Z12.31 Encounter for screening mammogram for malignant neoplasm of breast (principal) ==

== ENCOUNTER 2019-12-20 08:37 | Inpatient (IN) | payer OTHER | END 2020-01-20 10:38 | disposition still patient (30) | LOC: PAVA 08:37 | PROVIDERS: ADMIT Internal Medicine ==

== ENCOUNTER 2020-01-05 15:31 | Outpatient (CLI) | payer OTHER | END 2020-01-05 21:31 | disposition home or self-care (01) | LOC: RAD 15:31 | DX: S82.891A Other fracture of right lower leg, initial encounter for closed fracture (principal) ==

== ENCOUNTER 2020-01-20 10:57 | Inpatient (IN) | payer OTHER | END 2020-02-19 09:23 | disposition still patient (30) | LOC: PAVA 10:57 | PROVIDERS: ADMIT Internal Medicine ==

== ENCOUNTER 2020-01-21 07:08 | Outpatient (CLI) | payer OTHER | END 2020-01-21 23:53 | disposition home or self-care (01) | LOC: LAB 07:08 | DX: E11.9 Type 2 diabetes mellitus without complications (principal) | CPT/HCPCS: 83036 ==

== ENCOUNTER 2020-02-19 10:39 | Inpatient (IN) | payer OTHER | END 2020-03-21 08:00 | disposition still patient (30) | LOC: PAVA 10:39 | PROVIDERS: ADMIT Internal Medicine ==

== ENCOUNTER 2020-03-21 09:00 | Inpatient (IN) | payer OTHER | END 2020-04-20 08:09 | disposition still patient (30) | LOC: PAVA 09:00 | PROVIDERS: ADMIT Internal Medicine; ATTEND Internal Medicine ==

== ENCOUNTER 2020-04-20 08:47 | Inpatient (IN) | payer OTHER | END 2020-05-21 08:27 | disposition still patient (30) | LOC: PAVA 08:47 | PROVIDERS: ADMIT Internal Medicine; ATTEND Internal Medicine ==

== ENCOUNTER 2020-04-22 07:57 | Outpatient (CLI) | payer OTHER ==
[2020-04-22 08:14] LABS: PLATELET COUNT 248 K/uL (152-353)
== END 2020-04-22 18:57 | disposition home or self-care (01) ==
LOC: LAB 07:57
PROVIDERS: ATTEND Internal Medicine
DX: E11.9 Type 2 diabetes mellitus without complications (principal); E03.8 Other specified hypothyroidism; D50.8 Other iron deficiency anemias
CPT/HCPCS: 80053; 80061; 83036; 83540; 84443; 85027

== ENCOUNTER 2020-04-29 13:18 | Outpatient (CLI) | payer OTHER | END 2020-04-29 20:20 | disposition home or self-care (01) | LOC: RAD 13:18 | PROVIDERS: ATTEND Internal Medicine | DX: M19.90 Unspecified osteoarthritis, unspecified site (principal); N95.8 Other specified menopausal and perimenopausal disorders ==

== ENCOUNTER 2020-05-04 08:38 | Day surgery (SDC) | payer OTHER | END 2020-05-04 10:50 | LOC: OR 08:38 | PROVIDERS: ATTEND Internal Medicine | PROC: 0HBJXZZ Excision of Left Upper Leg Skin, External Approach (ICD-10-PCS; principal; 2020-05-04) | PROC: 0HBHXZZ Excision of Right Upper Leg Skin, External Approach (ICD-10-PCS; 2020-05-04) | PROC: 0HBDXZZ Excision of Right Lower Arm Skin, External Approach (ICD-10-PCS; 2020-05-04) | PROC: 0HQHXZZ Repair Right Upper Leg Skin, External Approach (ICD-10-PCS; 2020-05-04) | DX: C44.722 Squamous cell carcinoma of skin of right lower limb, including hip (principal); C44.729 Squamous cell carcinoma of skin of left lower limb, including hip; C44.622 Squamous cell carcinoma of skin of right upper limb, including shoulder; N95.8 Other specified menopausal and perimenopausal disorders ==

== ENCOUNTER 2020-05-21 08:31 | Inpatient (IN) | payer OTHER | END 2020-06-21 13:09 | disposition still patient (30) | LOC: PAVA 08:31 | PROVIDERS: ADMIT Internal Medicine; ATTEND Internal Medicine ==

== ENCOUNTER 2020-06-21 09:43 | Outpatient (CLI) | payer OTHER | END 2020-06-21 19:17 | disposition home or self-care (01) | LOC: LAB 09:43 | PROVIDERS: ATTEND Internal Medicine | DX: E03.8 Other specified hypothyroidism (principal) | CPT/HCPCS: 84443 ==

== ENCOUNTER 2020-06-21 13:24 | Inpatient (IN) | payer OTHER | END 2020-07-19 08:39 | disposition still patient (30) | LOC: PAVA 13:24 | PROVIDERS: ADMIT Internal Medicine; ATTEND Internal Medicine ==

== ENCOUNTER 2020-07-02 07:03 | Outpatient (CLI) | payer OTHER | END 2020-07-02 19:31 | disposition home or self-care (01) | LOC: LAB 07:03 | PROVIDERS: ATTEND Internal Medicine | DX: K62.5 Hemorrhage of anus and rectum (principal); Z85.038 Personal history of other malignant neoplasm of large intestine | CPT/HCPCS: 82378 ==

== ENCOUNTER 2020-07-12 14:14 | Outpatient (CLI) | payer OTHER ==
[2020-07-12 14:47] LABS: PLATELET COUNT 281 K/uL (152-353)
[2020-07-12 15:07] LABS: POTASSIUM 4.2 mmol/L (3.6-5.2)
== END 2020-07-12 19:29 | disposition home or self-care (01) ==
LOC: LAB 14:14
PROVIDERS: ATTEND Internal Medicine
DX: Z01.812 Encounter for preprocedural laboratory examination (principal); Z79.899 Other long term (current) drug therapy
CPT/HCPCS: 80053; 85027

== ENCOUNTER 2020-07-15 08:17 | Day surgery (SDC) | payer OTHER | END 2020-07-15 10:53 | disposition home or self-care (01) | LOC: OR 08:17 | PROVIDERS: ATTEND Internal Medicine | PROC: 0DJD8ZZ Inspection of Lower Intestinal Tract, Via Natural or Artificial Opening Endoscopic (ICD-10-PCS; principal; 2020-07-15) | DX: K57.30 Diverticulosis of large intestine without perforation or abscess without bleeding (principal); D64.89 Other specified anemias; Z85.038 Personal history of other malignant neoplasm of large intestine; Z12.11 Encounter for screening for malignant neoplasm of colon | CPT/HCPCS: J2704 ==

== ENCOUNTER 2020-07-19 08:43 | Inpatient (IN) | payer OTHER | END 2020-08-19 08:30 | disposition still patient (30) | LOC: PAVA 08:43 | PROVIDERS: ADMIT Internal Medicine; ATTEND Internal Medicine ==

== ENCOUNTER 2020-07-20 07:27 | Outpatient (CLI) | payer OTHER | END 2020-07-20 19:51 | disposition home or self-care (01) | LOC: LAB 07:27 | PROVIDERS: ATTEND Internal Medicine | DX: E11.9 Type 2 diabetes mellitus without complications (principal) | CPT/HCPCS: 83036 ==

== ENCOUNTER 2020-08-19 09:07 | Inpatient (IN) | payer OTHER | END 2020-09-18 11:56 | disposition still patient (30) | LOC: PAVA 09:07 | PROVIDERS: ADMIT Internal Medicine; ATTEND Internal Medicine ==

== ENCOUNTER 2020-08-24 15:17 | Outpatient (CLI) | payer OTHER | END 2020-08-24 19:29 | disposition home or self-care (01) | LOC: LAB 15:17 | PROVIDERS: ATTEND Internal Medicine | DX: R19.7 Diarrhea, unspecified (principal) | CPT/HCPCS: 83630; 87015; 87045; 87324; 87328; 87329; 87449; 87899 ==

== ENCOUNTER 2020-09-17 00:57 | Outpatient (CLI) | payer OTHER | END 2020-09-17 21:43 | disposition home or self-care (01) | LOC: LAB 00:57 | PROVIDERS: ATTEND Internal Medicine | DX: R53.83 Other fatigue (principal) | CPT/HCPCS: 81000; 87077; 87086; 87088; 87186 ==

== ENCOUNTER 2020-09-18 12:00 | Inpatient (IN) | payer OTHER | END 2020-10-19 13:07 | disposition still patient (30) | LOC: PAVA 12:00 | PROVIDERS: ADMIT Internal Medicine; ATTEND Internal Medicine ==

== ENCOUNTER 2020-09-20 10:38 | Outpatient (CLI) | payer OTHER | END 2020-09-20 19:32 | disposition home or self-care (01) | LOC: LAB 10:38 | PROVIDERS: ATTEND Internal Medicine | DX: R97.0 Elevated carcinoembryonic antigen [CEA] (principal) | CPT/HCPCS: 82378 ==

== ENCOUNTER 2020-10-19 14:07 | Inpatient (IN) | payer OTHER | END 2020-11-18 08:00 | disposition still patient (30) | LOC: PAVA 14:07 | PROVIDERS: ADMIT Internal Medicine; ATTEND Internal Medicine ==

== ENCOUNTER 2020-10-20 11:52 | Outpatient (CLI) | payer OTHER ==
[2020-10-20 12:23] LABS: PLATELET COUNT 318 K/uL (152-353)
[2020-10-20 13:35] LABS: POTASSIUM 4.1 mmol/L (3.6-5.2)
== END 2020-10-20 21:01 | disposition home or self-care (01) ==
LOC: LAB 11:52
PROVIDERS: ATTEND Internal Medicine
DX: D50.8 Other iron deficiency anemias (principal); E11.9 Type 2 diabetes mellitus without complications; E03.8 Other specified hypothyroidism
CPT/HCPCS: 80053; 83036; 83540; 84443; 85027

== ENCOUNTER 2020-11-08 11:42 | Outpatient (CLI) | payer OTHER | END 2020-11-08 14:05 | disposition home or self-care (01) | LOC: CT 11:42 | PROVIDERS: ATTEND Internal Medicine | DX: M25.512 Pain in left shoulder (principal); R51.9 Headache, unspecified; W19.XXXA Unspecified fall, initial encounter ==

== ENCOUNTER 2020-11-18 09:00 | Inpatient (IN) | payer OTHER | END 2020-12-19 08:00 | disposition still patient (30) | LOC: PAVA 09:00 | PROVIDERS: ADMIT Internal Medicine; ATTEND Internal Medicine ==

== ENCOUNTER 2020-12-19 09:00 | Inpatient (IN) | payer OTHER | END 2021-01-19 09:06 | disposition still patient (30) | LOC: PAVA 09:00 | PROVIDERS: ADMIT Internal Medicine; ATTEND Internal Medicine ==

== ENCOUNTER 2021-01-19 09:14 | Inpatient (IN) | payer OTHER | END 2021-02-18 08:09 | disposition still patient (30) | LOC: PAVA 09:14 | PROVIDERS: ADMIT Internal Medicine; ATTEND Internal Medicine ==

== ENCOUNTER 2021-01-19 13:05 | Outpatient (CLI) | payer OTHER | END 2021-01-19 23:00 | disposition home or self-care (01) | LOC: MAMMO 13:05 → US 13:05 → MAMMO 23:00 | PROVIDERS: ATTEND Internal Medicine | DX: N63.20 Unspecified lump in the left breast, unspecified quadrant (principal); N64.59 Other signs and symptoms in breast | CPT/HCPCS: G0279 ==

== ENCOUNTER 2021-01-20 08:09 | Outpatient (CLI) | payer OTHER | END 2021-01-20 22:09 | disposition home or self-care (01) | LOC: LAB 08:09 | PROVIDERS: ATTEND Internal Medicine | DX: E11.9 Type 2 diabetes mellitus without complications (principal) | CPT/HCPCS: 83036 ==

== ENCOUNTER 2021-01-26 14:47 | Outpatient (CLI) | payer OTHER | END 2021-01-26 20:39 | disposition home or self-care (01) | LOC: RAD 14:47 | PROVIDERS: ATTEND Internal Medicine | DX: M25.511 Pain in right shoulder (principal); M25.521 Pain in right elbow; M25.561 Pain in right knee; W19.XXXA Unspecified fall, initial encounter ==

== ENCOUNTER 2021-04-20 08:50 | Inpatient (IN) | payer OTHER | END 2021-05-21 07:55 | disposition still patient (30) | LOC: PAVA 08:50 | PROVIDERS: ADMIT Internal Medicine; ATTEND Internal Medicine ==

== ENCOUNTER 2021-04-20 10:55 | Outpatient (CLI) | payer OTHER ==
[2021-04-20 11:41] LABS: PLATELET COUNT 283 K/uL (152-353)
[2021-04-20 13:08] LABS: POTASSIUM 4.1 mmol/L (3.6-5.2)
== END 2021-04-20 20:24 | disposition home or self-care (01) ==
LOC: LAB 10:55
PROVIDERS: ATTEND Internal Medicine
DX: D50.8 Other iron deficiency anemias (principal); E11.9 Type 2 diabetes mellitus without complications; E03.8 Other specified hypothyroidism
CPT/HCPCS: 80053; 80061; 83036; 83540; 84443; 85027

== ENCOUNTER 2021-05-05 13:43 | Outpatient (CLI) | payer OTHER | END 2021-05-05 19:28 | disposition home or self-care (01) | LOC: RAD 13:43 | PROVIDERS: ATTEND Internal Medicine | DX: M25.562 Pain in left knee (principal); M25.561 Pain in right knee; W19.XXXA Unspecified fall, initial encounter ==

== ENCOUNTER 2021-05-09 15:06 | Outpatient (CLI) | payer OTHER | END 2021-05-09 19:04 | disposition home or self-care (01) | LOC: RAD 15:06 | PROVIDERS: ATTEND Internal Medicine | DX: M79.671 Pain in right foot (principal) ==

== ENCOUNTER 2021-05-21 08:01 | Inpatient (IN) | payer OTHER | END 2021-06-21 08:42 | disposition still patient (30) | LOC: PAVA 08:01 | PROVIDERS: ADMIT Internal Medicine; ATTEND Internal Medicine ==

== ENCOUNTER 2021-06-21 09:32 | Inpatient (IN) | payer OTHER | END 2021-07-19 08:52 | disposition still patient (30) | LOC: PAVA 09:32 | PROVIDERS: ADMIT Internal Medicine; ATTEND Internal Medicine ==

== ENCOUNTER 2021-07-19 09:42 | Inpatient (IN) | payer OTHER | END 2021-08-19 08:08 | disposition still patient (30) | LOC: PAVA 09:42 | PROVIDERS: ADMIT Internal Medicine; ATTEND Internal Medicine ==

== ENCOUNTER 2021-07-21 09:20 | Outpatient (CLI) | payer OTHER | END 2021-07-21 19:09 | disposition home or self-care (01) | LOC: LAB 09:20 | PROVIDERS: ATTEND Internal Medicine | DX: E11.9 Type 2 diabetes mellitus without complications (principal) | CPT/HCPCS: 83036 ==

== ENCOUNTER 2021-08-02 15:50 | Outpatient (CLI) | payer OTHER | END 2021-08-02 19:06 | disposition home or self-care (01) | LOC: CT 15:50 | PROVIDERS: ATTEND Internal Medicine | DX: G45.9 Transient cerebral ischemic attack, unspecified (principal) ==

== ENCOUNTER 2021-08-04 17:22 | Outpatient (CLI) | payer OTHER | END 2021-08-04 20:46 | disposition home or self-care (01) | LOC: LAB 17:22 | PROVIDERS: ATTEND Internal Medicine | DX: N39.0 Urinary tract infection, site not specified (principal); N32.81 Overactive bladder | CPT/HCPCS: 81000; 87077; 87086; 87088; 87186 ==

== ENCOUNTER 2021-08-19 08:22 | Inpatient (IN) | payer OTHER | END 2021-09-18 10:47 | disposition still patient (30) | LOC: PAVA 08:22 | PROVIDERS: ADMIT Internal Medicine; ATTEND Internal Medicine ==

== ENCOUNTER 2021-09-18 03:20 | Inpatient (IN) | payer OTHER | END 2021-10-19 09:23 | disposition still patient (30) | LOC: PAVA 03:20 | PROVIDERS: ADMIT Internal Medicine; ATTEND Internal Medicine ==

== ENCOUNTER 2021-09-19 13:04 | Outpatient (CLI) | payer OTHER | END 2021-09-19 19:01 | disposition home or self-care (01) | LOC: LAB 13:04 | PROVIDERS: ATTEND Internal Medicine | DX: Z08 Encounter for follow-up examination after completed treatment for malignant neoplasm (principal); Z85.038 Personal history of other malignant neoplasm of large intestine | CPT/HCPCS: 82378 ==

== ENCOUNTER 2021-10-19 09:57 | Outpatient (CLI) | payer OTHER ==
[2021-10-19 10:46] LABS: PLATELET COUNT 283 K/uL (152-353)
== END 2021-10-19 19:11 | disposition home or self-care (01) ==
LOC: LAB 09:57
PROVIDERS: ATTEND Internal Medicine
DX: E11.9 Type 2 diabetes mellitus without complications (principal); D50.8 Other iron deficiency anemias
CPT/HCPCS: 80053; 82728; 83036; 84443; 85027

== ENCOUNTER 2021-10-19 10:58 | Inpatient (IN) | payer OTHER | END 2021-11-18 08:59 | disposition still patient (30) | LOC: PAVA 10:58 | PROVIDERS: ADMIT Internal Medicine; ATTEND Internal Medicine ==

== ENCOUNTER 2021-11-18 10:19 | Inpatient (IN) | payer OTHER | END 2021-12-19 09:22 | disposition still patient (30) | LOC: PAVA 10:19 | PROVIDERS: ADMIT Internal Medicine; ATTEND Internal Medicine ==

== ENCOUNTER 2021-12-19 10:37 | Outpatient (CLI) | payer OTHER | END 2021-12-19 18:57 | disposition home or self-care (01) | LOC: MAMMO 10:37 | PROVIDERS: ATTEND Internal Medicine | DX: Z12.31 Encounter for screening mammogram for malignant neoplasm of breast (principal) ==

== ENCOUNTER 2021-12-19 14:06 | Inpatient (IN) | payer OTHER | END 2022-01-19 08:52 | disposition still patient (30) | LOC: PAVA 14:06 | PROVIDERS: ADMIT Internal Medicine; ATTEND Internal Medicine ==

== ENCOUNTER 2021-12-28 10:03 | Outpatient (CLI) | payer OTHER | END 2021-12-28 19:22 | disposition home or self-care (01) | LOC: MRI 10:03 | PROVIDERS: ATTEND Family Medicine | DX: R41.82 Altered mental status, unspecified (principal) ==

== ENCOUNTER 2022-01-04 09:37 | Outpatient (CLI) | payer OTHER | END 2022-01-04 19:59 | disposition home or self-care (01) | LOC: RESP 09:37 | PROVIDERS: ATTEND Family Medicine | DX: R41.82 Altered mental status, unspecified (principal); Z79.899 Other long term (current) drug therapy ==

== ENCOUNTER 2022-01-11 08:24 | Outpatient (CLI) | payer OTHER ==
[~2022-01-11] VITALS: Ht 167.6 cm; Wt 54.4 kg
== END 2022-01-11 19:22 | disposition home or self-care (01) ==
LOC: NM 08:24
PROVIDERS: ATTEND Family Medicine
DX: R41.82 Altered mental status, unspecified (principal); Z79.899 Other long term (current) drug therapy
CPT/HCPCS: A9500; J2785

== ENCOUNTER 2022-01-17 09:50 | Outpatient (CLI) | payer OTHER ==
[2022-01-17 15:05] LABS: PLATELET COUNT 302 K/uL (152-353)
== END 2022-01-17 19:00 | disposition home or self-care (01) ==
LOC: LAB 09:50
PROVIDERS: ATTEND Family Medicine
DX: I25.89 Other forms of chronic ischemic heart disease (principal); R19.7 Diarrhea, unspecified
CPT/HCPCS: 85027; 87324; 87328; 87329; 87449

== ENCOUNTER 2022-01-19 09:47 | Inpatient (IN) | payer OTHER | END 2022-02-18 10:17 | disposition still patient (30) | LOC: PAVA 09:47 | PROVIDERS: ADMIT Family Medicine; ATTEND Family Medicine ==

== ENCOUNTER 2022-01-20 07:23 | Outpatient (CLI) | payer OTHER | END 2022-01-20 21:46 | disposition home or self-care (01) | LOC: LAB 07:23 | PROVIDERS: ATTEND Family Medicine | DX: E11.9 Type 2 diabetes mellitus without complications (principal) | CPT/HCPCS: 83036 ==

== ENCOUNTER 2022-02-07 10:15 | Outpatient (CLI) | payer OTHER ==
[2022-02-07 10:40] LABS: PLATELET COUNT 293 K/uL (152-353)
== END 2022-02-07 20:22 | disposition home or self-care (01) ==
LOC: LAB 10:15
PROVIDERS: ATTEND Family Medicine
DX: R94.39 Abnormal result of other cardiovascular function study (principal)
CPT/HCPCS: 80048; 85027

== ENCOUNTER 2022-02-13 07:20 | Outpatient (CLI) | payer OTHER ==
[2022-02-13 07:55] LABS: POTASSIUM 4.1 mmol/L (3.6-5.2)
== END 2022-02-13 19:59 | disposition home or self-care (01) ==
LOC: LAB 07:20
PROVIDERS: ATTEND Family Medicine
DX: I25.89 Other forms of chronic ischemic heart disease (principal)
CPT/HCPCS: 80048

== ENCOUNTER 2022-02-18 11:55 | Inpatient (IN) | payer OTHER | END 2022-03-21 09:43 | disposition still patient (30) | LOC: PAVA 11:55 | PROVIDERS: ADMIT Family Medicine; ATTEND Family Medicine ==

== ENCOUNTER 2022-03-21 09:54 | Inpatient (IN) | payer OTHER ==
[~2022-03-21] VITALS: Ht 152.4 cm; Wt 68.0 kg
== END 2022-04-20 10:04 | disposition still patient (30) ==
LOC: PAVA 09:54
PROVIDERS: ADMIT Family Medicine; ATTEND Family Medicine

== ENCOUNTER 2022-04-03 07:41 | Outpatient (CLI) | payer OTHER ==
[2022-04-03 08:04] LABS: PLATELET COUNT 274 K/uL (152-353)
[2022-04-03 08:13] LABS: POTASSIUM 4.4 mmol/L (3.6-5.2)
== END 2022-04-03 19:52 | disposition home or self-care (01) ==
LOC: LAB 07:41
PROVIDERS: ATTEND Family Medicine
DX: I25.9 Chronic ischemic heart disease, unspecified (principal); R26.81 Unsteadiness on feet; I25.10 Atherosclerotic heart disease of native coronary artery without angina pectoris; I95.1 Orthostatic hypotension; D50.8 Other iron deficiency anemias
CPT/HCPCS: 80053; 82607; 82728; 83540; 83550; 83880; 85027

== ENCOUNTER 2022-04-05 10:04 | Outpatient (CLI) | payer OTHER ==
[~2022-04-05] VITALS: Ht 154.9 cm; Wt 68.9 kg
[2022-04-05 10:02] VITALS: BP 128/46; TEMP 97.4
[2022-04-05 11:50] VITALS: BP 130/60; TEMP 98.5
== END 2022-04-05 23:59 | disposition home or self-care (01) ==
LOC: INF 10:04
PROVIDERS: ATTEND Family Medicine
DX: D50.9 Iron deficiency anemia, unspecified (principal)
CPT/HCPCS: 96365; Q0138

== ENCOUNTER 2022-04-12 10:08 | Outpatient (CLI) | payer OTHER ==
[~2022-04-12] VITALS: Ht 152.4 cm; Wt 68.0 kg
[2022-04-12 10:18] VITALS: BP 91/37; TEMP 97.5
[2022-04-12 11:23] VITALS: BP 109/43; TEMP 97.5
== END 2022-04-12 19:19 | disposition home or self-care (01) ==
LOC: INF 10:08
PROVIDERS: ATTEND Family Medicine
DX: D50.9 Iron deficiency anemia, unspecified (principal)
CPT/HCPCS: 96365; Q0138

== ENCOUNTER 2022-04-19 09:58 | Outpatient (CLI) | payer OTHER | END 2022-04-19 19:37 | disposition home or self-care (01) | LOC: RAD 09:58 | PROVIDERS: ATTEND Orthopaedic Surgery | DX: M25.561 Pain in right knee (principal); M25.562 Pain in left knee ==

== ENCOUNTER 2022-04-20 10:12 | Inpatient (IN) | payer OTHER ==
[2022-05-02] MEDS ORDERED: ASPIRIN 8181 MG PO (15:24)
[2022-05-02] MEDS ORDERED: LIPITOR40 MG PO (15:25)
[2022-05-02] MEDS ORDERED: CARV3.12 PO (15:26)
[2022-05-02] MEDS ORDERED: ESTR1TAB13 PO (15:26)
[2022-05-02] MEDS ORDERED: BENEPROTEIN6 GM PO (15:26)
[2022-05-02] MEDS ORDERED: HYDR5TAB9 PO (15:27)
[2022-05-02] MEDS ORDERED: LEVEMIR FL100 UNIT/M SC (15:27)
[2022-05-02] MEDS ORDERED: OZEMPIC4 MG/3 ML SC (15:28)
[2022-05-02] MEDS ORDERED: CLOP75TA2 PO (15:29)
[2022-05-02] MEDS ORDERED: PRILOSEC OTC20 MG PO (15:30)
[2022-05-02] MEDS ORDERED: [UNRECOGNIZED DRUG - CODE] INJ (15:31)
[2022-05-02] MEDS ORDERED: DENO60SO SC (15:32)
[2022-05-02] MEDS ORDERED: EUTHYROX75 MCG PO (15:33)
[2022-05-02] MEDS ORDERED: MONT10TA PO (15:33)
[2022-05-02] MEDS ORDERED: ZYRTEC ALLGY10 MG PO (15:35)
[2022-05-02] MEDS ORDERED: XARELTO15 MG PO (15:35)
[2022-05-02] MEDS ORDERED: TYLENOL325 M1 PO (15:35)
[2022-05-03] MEDS ORDERED: SODI1TAB PO (12:32)
[2022-05-03] MEDS ORDERED: CEFT1INJ27 INJ (12:35)
== END 2022-05-21 10:27 | disposition still patient (30) ==
LOC: PAVA 10:12
PROVIDERS: ADMIT Family Medicine; ATTEND Family Medicine

== ENCOUNTER 2022-04-20 10:47 | Outpatient (CLI) | payer OTHER ==
[2022-04-20 11:03] LABS: PLATELET COUNT 254 K/uL (152-353)
[2022-04-20 11:26] LABS: POTASSIUM 4.1 mmol/L (3.6-5.2)
== END 2022-04-20 19:03 | disposition home or self-care (01) ==
LOC: LAB 10:47
PROVIDERS: ATTEND Family Medicine
DX: I25.9 Chronic ischemic heart disease, unspecified (principal); D50.8 Other iron deficiency anemias; E11.9 Type 2 diabetes mellitus without complications; E03.8 Other specified hypothyroidism
CPT/HCPCS: 80053; 82728; 83036; 84443; 85027

== ENCOUNTER 2022-04-24 07:37 | Outpatient (CLI) | payer OTHER ==
[2022-04-24 07:48] LABS: PLATELET COUNT 272 K/uL (152-353)
== END 2022-04-24 19:33 | disposition home or self-care (01) ==
LOC: LAB 07:37
PROVIDERS: ATTEND Family Medicine
DX: E11.9 Type 2 diabetes mellitus without complications (principal)
CPT/HCPCS: 85027

== ENCOUNTER 2022-05-02 11:33 | Observation (INO) | payer OTHER ==
[~2022-05-02] VITALS: Ht 165.1 cm; Wt 79.9 kg
[2022-05-02 12:29] LABS: POTASSIUM 4.7 mmol/L (3.6-5.2)
[2022-05-02 12:32] LABS: PLATELET COUNT 286 K/uL (152-353)
[2022-05-02] MEDS ORDERED: ASPIRIN 8181 MG PO (15:24)
[2022-05-02] MEDS ORDERED: LIPITOR40 MG PO (15:25)
[2022-05-02] MEDS ORDERED: CARV3.12 PO (15:26)
[2022-05-02] MEDS ORDERED: BENEPROTEIN6 GM PO (15:26)
[2022-05-02] MEDS ORDERED: ESTR1TAB13 PO (15:26)
[2022-05-02] MEDS ORDERED: LEVEMIR FL100 UNIT/M SC (15:27)
[2022-05-02] MEDS ORDERED: HYDR5TAB9 PO (15:27)
[2022-05-02] MEDS ORDERED: OZEMPIC4 MG/3 ML SC (15:28)
[2022-05-02] MEDS ORDERED: CLOP75TA2 PO (15:29)
[2022-05-02] MEDS ORDERED: PRILOSEC OTC20 MG PO (15:30)
[2022-05-02] MEDS ORDERED: [UNRECOGNIZED DRUG - CODE] INJ (15:31)
[2022-05-02] MEDS ORDERED: DENO60SO SC (15:32)
[2022-05-02] MEDS ORDERED: MONT10TA PO (15:33)
[2022-05-02] MEDS ORDERED: EUTHYROX75 MCG PO (15:33)
[2022-05-02] MEDS ORDERED: XARELTO15 MG PO (15:35)
[2022-05-02] MEDS ORDERED: TYLENOL325 M1 PO (15:35)
[2022-05-02] MEDS ORDERED: ZYRTEC ALLGY10 MG PO (15:35)
[2022-05-02 15:53] VITALS: BP 170/56; TEMP 97.8; Ht 165.1 cm; Wt 79.9 kg
[2022-05-02 16:00] VITALS: BP 188/79; TEMP 98.3
[2022-05-02 19:04] VITALS: BP 188/79; TEMP 98.3
[2022-05-03] VITALS: BP 176/54; TEMP 97.9
[2022-05-03 04:00] VITALS: BP 171/48; TEMP 97.8
[2022-05-03 05:59] LABS: POTASSIUM 4.4 mmol/L (3.6-5.2)
[2022-05-03 06:01] LABS: PLATELET COUNT 250 K/uL (152-353)
[2022-05-03 08:00] VITALS: BP 185/74; TEMP 97.5
[2022-05-03 12:00] VITALS: BP 169/77; TEMP 97.9
[2022-05-03] MEDS ORDERED: SODI1TAB PO (12:32)
[2022-05-03] MEDS ORDERED: CEFT1INJ27 INJ (12:35)
== END 2022-05-03 13:59 ==
LOC: LAB 11:33 → MED/SURG 14:38
PROVIDERS: Family Medicine; ADMIT Internal Medicine; ATTEND Internal Medicine
DX: N39.0 Urinary tract infection, site not specified (principal); E87.1 Hypo-osmolality and hyponatremia; R41.82 Altered mental status, unspecified; I25.10 Atherosclerotic heart disease of native coronary artery without angina pectoris; E03.8 Other specified hypothyroidism; N31.2 Flaccid neuropathic bladder, not elsewhere classified; T83.511A Infection and inflammatory reaction due to indwelling urethral catheter, initial encounter; B96.20 Unspecified Escherichia coli [E. coli] as the cause of diseases classified elsewhere; E11.65 Type 2 diabetes mellitus with hyperglycemia; I95.1 Orthostatic hypotension
CPT/HCPCS: 80053; 81000; 82533; 82948; 85027; 87077; 87086; 87088; 87186; 87635; 96361; 96365; 99220; G0378; J0696; U0003

== ENCOUNTER 2022-05-04 10:23 | Outpatient (CLI) | payer OTHER ==
[~2022-05-04] VITALS: Ht 165.1 cm; Wt 79.9 kg
[~2022-05-04 10:23] MED LIST: ASPIRIN 8181 MG PO; BENEPROTEIN6 GM PO; CARV3.12 PO; CEFT1INJ27 INJ; CLOP75TA2 PO; DENO60SO SC; ESTR1TAB13 PO; EUTHYROX75 MCG PO; HYDR5TAB9 PO; LEVEMIR FL100 UNIT/M SC; LIPITOR40 MG PO; MONT10TA PO; OZEMPIC4 MG/3 ML SC; PRILOSEC OTC20 MG PO; SODI1TAB PO; TYLENOL325 M1 PO; XARELTO15 MG PO; ZYRTEC ALLGY10 MG PO; [UNRECOGNIZED DRUG - CODE] INJ
[2022-05-04 10:30] VITALS: BP 115/56; TEMP 97.7
[2022-05-04 11:40] VITALS: BP 122/58; TEMP 98.1
== END 2022-05-04 18:58 | disposition home or self-care (01) ==
LOC: INF 10:23
PROVIDERS: ATTEND Family Medicine
DX: N39.0 Urinary tract infection, site not specified (principal)
CPT/HCPCS: 96365; J0696

== ENCOUNTER 2022-05-05 09:54 | Outpatient (CLI) | payer OTHER ==
[~2022-05-05] VITALS: Ht 165.1 cm; Wt 79.9 kg
[2022-05-05 10:04] VITALS: BP 91/74; TEMP 97.2
[2022-05-05 10:48] VITALS: BP 125/62; TEMP 97.4
== END 2022-05-05 18:57 | disposition home or self-care (01) ==
LOC: INF 09:54 → RAD 13:00 → INF 18:57
PROVIDERS: ATTEND Family Medicine
DX: N39.0 Urinary tract infection, site not specified (principal)
CPT/HCPCS: 96365; J0696

== ENCOUNTER 2022-05-06 10:07 | Outpatient (CLI) | payer OTHER ==
[~2022-05-06] VITALS: Ht 165.1 cm; Wt 79.8 kg
== END 2022-05-06 19:16 | disposition home or self-care (01) ==
LOC: INF 10:07
PROVIDERS: ATTEND Family Medicine
DX: N39.0 Urinary tract infection, site not specified (principal)
CPT/HCPCS: 96374; J0696

== ENCOUNTER 2022-05-07 09:37 | Outpatient (CLI) | payer OTHER ==
[~2022-05-07] VITALS: Ht 165.1 cm; Wt 79.8 kg
== END 2022-05-07 19:09 | disposition home or self-care (01) ==
LOC: INF 09:37
PROVIDERS: ATTEND Family Medicine
DX: N39.0 Urinary tract infection, site not specified (principal)
CPT/HCPCS: 96374; J0696

== ENCOUNTER 2022-05-08 10:15 | Outpatient (CLI) | payer OTHER ==
[2022-05-08 10:22] VITALS: BP 118/49; TEMP 97.4
== END 2022-05-08 18:56 | disposition home or self-care (01) ==
LOC: INF 10:15
PROVIDERS: ATTEND Family Medicine
DX: N39.0 Urinary tract infection, site not specified (principal); Z78.0 Asymptomatic menopausal state

== ENCOUNTER 2022-05-19 03:58 | Outpatient (CLI) | payer OTHER ==
[2022-05-19 05:39] LABS: POTASSIUM 4.3 mmol/L (3.6-5.2)
== END 2022-05-19 23:32 | disposition home or self-care (01) ==
LOC: LAB 03:58
PROVIDERS: ATTEND Family Medicine
DX: E86.0 Dehydration (principal); R79.89 Other specified abnormal findings of blood chemistry
CPT/HCPCS: 80048

== ENCOUNTER 2022-05-21 11:02 | Inpatient (IN) | payer OTHER ==
[~2022-05-21 11:02] MED LIST changes: +CETI10TA PO; -ZYRTEC ALLGY10 MG PO
== END 2022-06-21 08:35 | disposition still patient (30) ==
LOC: PAVA 11:02
PROVIDERS: ADMIT Family Medicine; ATTEND Family Medicine

== ENCOUNTER 2022-05-22 09:26 | Outpatient (CLI) | payer OTHER ==
[~2022-05-22 09:26] MED LIST changes: -CETI10TA PO; +ZYRTEC ALLGY10 MG PO
[2022-05-22 09:38] LABS: PLATELET COUNT 259 K/uL (152-353)
== END 2022-05-22 19:05 | disposition home or self-care (01) ==
LOC: LAB 09:26
PROVIDERS: ATTEND Family Medicine
DX: E11.9 Type 2 diabetes mellitus without complications (principal)
CPT/HCPCS: 85027

== ENCOUNTER 2022-06-05 07:39 | Outpatient (CLI) | payer OTHER ==
[2022-06-05 08:15] LABS: PLATELET COUNT 310 K/uL (152-353)
== END 2022-06-05 19:01 | disposition home or self-care (01) ==
LOC: LAB 07:39
PROVIDERS: ATTEND Family Medicine
DX: E11.9 Type 2 diabetes mellitus without complications (principal)
CPT/HCPCS: 85027

== ENCOUNTER 2022-06-19 05:36 | Outpatient (CLI) | payer OTHER ==
[2022-06-19 07:23] LABS: PLATELET COUNT 289 K/uL (152-353)
== END 2022-06-19 18:58 | disposition home or self-care (01) ==
LOC: LAB 05:36
PROVIDERS: ATTEND Family Medicine
DX: E11.9 Type 2 diabetes mellitus without complications (principal)
CPT/HCPCS: 85027

== ENCOUNTER 2022-06-21 09:49 | Inpatient (IN) | payer OTHER ==
[~2022-06-21 09:49] MED LIST changes: +CETI10TA PO; -ZYRTEC ALLGY10 MG PO
== END 2022-07-19 09:50 | disposition still patient (30) ==
LOC: PAVA 09:49
PROVIDERS: ADMIT Family Medicine; ATTEND Family Medicine

== ENCOUNTER 2022-06-23 13:07 | Observation (INO) | payer OTHER ==
[~2022-06-23] VITALS: Ht 167.6 cm; Wt 79.4 kg
[2022-06-23 13:07] VITALS: BP 155/54; TEMP 97.8
[2022-06-23 14:34] LABS: PLATELET COUNT 358 K/uL (152-353)
[2022-06-23 14:35] LABS: POTASSIUM 4.5 mmol/L (3.6-5.2)
[2022-06-23 17:07] VITALS: BP 123/78; TEMP 98.4
[2022-06-23 17:36] VITALS: BP 123/78; TEMP 98.4; Ht 167.6 cm; Wt 79.4 kg
[2022-06-23 19:42] VITALS: BP 150/58; TEMP 98.1
[2022-06-23 19:43] VITALS: BP 150/58; TEMP 98.1
[2022-06-23 23:38] VITALS: BP 141/48; TEMP 97.6
[2022-06-24 03:37] VITALS: BP 151/50; TEMP 97.6
[2022-06-24 07:18] LABS: POTASSIUM 4.3 mmol/L (3.6-5.2)
[2022-06-24 07:37] LABS: PLATELET COUNT 306 K/uL (152-353)
[2022-06-24 08:00] VITALS: BP 157/62; TEMP 97.5
[2022-06-24 12:00] VITALS: BP 171/65; TEMP 97.5
== END 2022-06-24 14:52 ==
LOC: ED 13:07 → MED/SURG 15:55
PROVIDERS: Family Medicine; ADMIT Internal Medicine; ATTEND Internal Medicine
DX: G92.8 Other toxic encephalopathy (principal); R41.82 Altered mental status, unspecified; E87.1 Hypo-osmolality and hyponatremia; I25.10 Atherosclerotic heart disease of native coronary artery without angina pectoris; E03.8 Other specified hypothyroidism; M81.8 Other osteoporosis without current pathological fracture; E78.49 Other hyperlipidemia; T83.511A Infection and inflammatory reaction due to indwelling urethral catheter, initial encounter; Y84.6 Urinary catheterization as the cause of abnormal reaction of the patient, or of later complication, without mention of misadventure at the time of the procedure; Y92.89 Other specified places as the place of occurrence of the external cause; N39.0 Urinary tract infection, site not specified; B96.5 Pseudomonas (aeruginosa) (mallei) (pseudomallei) as the cause of diseases classified elsewhere; E11.22 Type 2 diabetes mellitus with diabetic chronic kidney disease; E11.65 Type 2 diabetes mellitus with hyperglycemia; N18.4 Chronic kidney disease, stage 4 (severe); D63.1 Anemia in chronic kidney disease
CPT/HCPCS: 36415; 80048; 80053; 81000; 82948; 84484; 85027; 85379; 85610; 86140; 87077; 87086; 87088; 87186; 87635; 93005; 96360; 96361; 96365; 96366; 96367; 96372; 99220; 99284; J1956; G0378; J0696; J1815; U0003

== ENCOUNTER 2022-06-26 19:42 | Outpatient (CLI) | payer OTHER ==
[2022-06-26 20:43] VITALS: BP 156/55; TEMP 97.4
[2022-06-26 20:55] VITALS: BP 150/56; TEMP 98.2
== END 2022-06-26 22:50 ==
LOC: INF 19:42
PROVIDERS: ATTEND Family Medicine
DX: N39.0 Urinary tract infection, site not specified (principal)
CPT/HCPCS: 96365; J2185

== ENCOUNTER 2022-06-27 08:01 | Outpatient (CLI) | payer OTHER ==
[~2022-06-27] VITALS: Ht 167.6 cm; Wt 79.4 kg
[2022-06-27 08:06] VITALS: BP 136/52; TEMP 97.1
[2022-06-27 08:55] VITALS: BP 108/52; TEMP 97.3
[2022-06-27 20:06] VITALS: BP 149/54; TEMP 97.8
[2022-06-27 20:53] VITALS: BP 150/52; TEMP 97.7
== END 2022-06-27 23:03 | disposition home or self-care (01) ==
LOC: INF 08:01
PROVIDERS: ATTEND Family Medicine
DX: N39.0 Urinary tract infection, site not specified (principal)
CPT/HCPCS: 96365; 96366; J2185

== ENCOUNTER 2022-06-30 07:57 | Outpatient (CLI) | payer OTHER ==
[~2022-06-30] VITALS: Ht 167.6 cm; Wt 79.8 kg
[2022-06-30 08:06] VITALS: BP 144/60; TEMP 97.7
== END 2022-06-30 19:21 | disposition home or self-care (01) ==
LOC: INF 07:57
PROVIDERS: ATTEND Family Medicine
DX: N39.0 Urinary tract infection, site not specified (principal)
CPT/HCPCS: 96365; J2185

== ENCOUNTER 2022-07-01 09:00 | Outpatient (CLI) | payer OTHER ==
[~2022-07-01] VITALS: Ht 167.6 cm; Wt 79.8 kg
== END 2022-07-01 18:55 | disposition home or self-care (01) ==
LOC: INF 09:00
PROVIDERS: ATTEND Family Medicine
DX: N39.0 Urinary tract infection, site not specified (principal)
CPT/HCPCS: 96365; J2185

== ENCOUNTER 2022-07-02 09:05 | Outpatient (CLI) | payer OTHER ==
[~2022-07-02] VITALS: Ht 167.6 cm; Wt 79.8 kg
== END 2022-07-02 19:00 | disposition home or self-care (01) ==
LOC: INF 09:05
PROVIDERS: ATTEND Family Medicine
DX: N39.0 Urinary tract infection, site not specified (principal)
CPT/HCPCS: 96365; J2185

== ENCOUNTER 2022-07-03 07:30 | Outpatient (CLI) | payer OTHER ==
[~2022-07-03] VITALS: Ht 167.6 cm; Wt 79.4 kg
[2022-07-03 07:38] VITALS: BP 158/60; TEMP 97.6
== END 2022-07-03 19:02 | disposition home or self-care (01) ==
LOC: INF 07:30
PROVIDERS: ATTEND Family Medicine
DX: N39.0 Urinary tract infection, site not specified (principal)
CPT/HCPCS: 96365; J2185

== ENCOUNTER 2022-07-04 07:53 | Outpatient (CLI) | payer OTHER ==
[~2022-07-04] VITALS: Ht 167.6 cm; Wt 79.8 kg
[2022-07-04 07:40] VITALS: BP 154/86; TEMP 98.1
== END 2022-07-04 19:34 | disposition home or self-care (01) ==
LOC: INF 07:53
PROVIDERS: ATTEND Family Medicine
DX: N39.0 Urinary tract infection, site not specified (principal)
CPT/HCPCS: 96365; 96366; J2185

== ENCOUNTER 2022-07-05 07:32 | Outpatient (CLI) | payer OTHER ==
[~2022-07-05] VITALS: Ht 167.6 cm; Wt 79.8 kg
[2022-07-05 08:35] VITALS: BP 152/52; TEMP 97.8
[2022-07-05 20:00] VITALS: BP 132/54; TEMP 97.6
[2022-07-05 21:00] VITALS: BP 132/60; TEMP 98
== END 2022-07-05 18:54 | disposition home or self-care (01) ==
LOC: INF 07:32
PROVIDERS: ATTEND Family Medicine
DX: N39.0 Urinary tract infection, site not specified (principal)
CPT/HCPCS: 96365; 96366; J2185

== ENCOUNTER 2022-07-14 09:01 | Outpatient (CLI) | payer OTHER | END 2022-07-14 18:53 | disposition home or self-care (01) | LOC: US 09:01 | PROVIDERS: ATTEND Family Medicine | DX: N30.80 Other cystitis without hematuria (principal); N18.4 Chronic kidney disease, stage 4 (severe) ==

== ENCOUNTER 2022-07-17 08:10 | Outpatient (CLI) | payer OTHER ==
[2022-07-17 08:27] LABS: PLATELET COUNT 287 K/uL (152-353)
[2022-07-17 16:27] LABS: POTASSIUM 4.4 mmol/L (3.6-5.2)
== END 2022-07-17 18:55 | disposition home or self-care (01) ==
LOC: LAB 08:10
PROVIDERS: ATTEND Family Medicine
DX: E11.9 Type 2 diabetes mellitus without complications (principal); Z79.899 Other long term (current) drug therapy
CPT/HCPCS: 80053; 81000; 82550; 84436; 84443; 85027; 87088; 87502

== ENCOUNTER 2022-07-18 13:02 | Outpatient (CLI) | payer OTHER ==
[~2022-07-18] VITALS: Ht 167.6 cm; Wt 79.8 kg
[2022-07-18 13:10] VITALS: BP 142/65; TEMP 97.8
[2022-07-18 17:50] VITALS: BP 146/67; TEMP 98
== END 2022-07-18 18:59 | disposition home or self-care (01) ==
LOC: INF 13:02
PROVIDERS: ATTEND Family Medicine
DX: E87.1 Hypo-osmolality and hyponatremia (principal)
CPT/HCPCS: 96360

== ENCOUNTER 2022-07-19 08:37 | Outpatient (CLI) | payer OTHER ==
[2022-07-19 09:09] LABS: POTASSIUM 4.2 mmol/L (3.6-5.2)
== END 2022-07-19 19:12 | disposition home or self-care (01) ==
LOC: LAB 08:37
PROVIDERS: ATTEND Family Medicine
DX: E87.1 Hypo-osmolality and hyponatremia (principal); E11.9 Type 2 diabetes mellitus without complications
CPT/HCPCS: 80048; 83036

== ENCOUNTER 2022-07-19 09:58 | Inpatient (IN) | payer OTHER | END 2022-08-19 10:57 | disposition still patient (30) | LOC: PAVA 09:58 | PROVIDERS: ADMIT Family Medicine; ATTEND Family Medicine ==

== ENCOUNTER 2022-07-31 07:50 | Outpatient (CLI) | payer OTHER ==
[2022-07-31 08:19] LABS: PLATELET COUNT 315 K/uL (152-353)
== END 2022-07-31 19:00 | disposition home or self-care (01) ==
LOC: LAB 07:50
PROVIDERS: ATTEND Family Medicine
DX: E11.9 Type 2 diabetes mellitus without complications (principal)
CPT/HCPCS: 85027

== ENCOUNTER 2022-08-14 05:53 | Outpatient (CLI) | payer OTHER ==
[2022-08-14 08:43] LABS: PLATELET COUNT 281 K/uL (152-353)
== END 2022-08-14 18:54 | disposition home or self-care (01) ==
LOC: LAB 05:53
PROVIDERS: ATTEND Family Medicine
DX: E11.9 Type 2 diabetes mellitus without complications (principal)
CPT/HCPCS: 85027

== ENCOUNTER 2022-08-19 11:05 | Inpatient (IN) | payer OTHER | END 2022-09-18 09:52 | disposition still patient (30) | LOC: PAVA 11:05 | PROVIDERS: ADMIT Family Medicine; ATTEND Family Medicine ==

== ENCOUNTER 2022-08-28 07:50 | Outpatient (CLI) | payer OTHER ==
[2022-08-28 08:03] LABS: PLATELET COUNT 70 K/uL (152-353)
== END 2022-08-28 18:59 | disposition home or self-care (01) ==
LOC: LAB 07:50
PROVIDERS: ATTEND Family Medicine
DX: E11.9 Type 2 diabetes mellitus without complications (principal)
CPT/HCPCS: 36415; 85027

== ENCOUNTER 2022-09-11 07:20 | Outpatient (CLI) | payer OTHER ==
[2022-09-11 08:13] LABS: PLATELET COUNT 328 K/uL (152-353)
== END 2022-09-11 18:56 | disposition home or self-care (01) ==
LOC: LAB 07:20
PROVIDERS: ATTEND Family Medicine
DX: E11.9 Type 2 diabetes mellitus without complications (principal)
CPT/HCPCS: 85027

== ENCOUNTER 2022-09-18 09:58 | Inpatient (IN) | payer OTHER | END 2022-10-19 09:01 | disposition still patient (30) | LOC: PAVA 09:58 | PROVIDERS: ADMIT Family Medicine; ATTEND Family Medicine ==

== ENCOUNTER → 2022-09-19 | Outpatient (CLI) | payer OTHER | LOC: LAB 11:28 | PROVIDERS: ATTEND Family Medicine | DX: E78.00 Pure hypercholesterolemia, unspecified (principal); K80.10 Calculus of gallbladder with chronic cholecystitis without obstruction; Z85.038 Personal history of other malignant neoplasm of large intestine; Z08 Encounter for follow-up examination after completed treatment for malignant neoplasm | CPT/HCPCS: 36415; 82378 ==

== ENCOUNTER 2022-09-22 14:21 | Outpatient (CLI) | payer OTHER | END 2022-09-22 19:22 | disposition home or self-care (01) | LOC: CT 14:21 | PROVIDERS: ATTEND Family Medicine | DX: M25.571 Pain in right ankle and joints of right foot (principal); W19.XXXA Unspecified fall, initial encounter; R40.4 Transient alteration of awareness ==

== ENCOUNTER 2022-09-25 06:04 | Outpatient (CLI) | payer OTHER ==
[2022-09-25 07:48] LABS: PLATELET COUNT 297 K/uL (152-353)
== END 2022-09-25 18:58 | disposition home or self-care (01) ==
LOC: LAB 06:04
PROVIDERS: ATTEND Family Medicine
DX: E11.9 Type 2 diabetes mellitus without complications (principal)
CPT/HCPCS: 85027

== ENCOUNTER 2022-09-25 20:11 | Outpatient (CLI) | payer OTHER ==
[2022-09-25 21:39] LABS: POTASSIUM 4.6 mmol/L (3.6-5.2)
== END 2022-09-25 20:42 | disposition home or self-care (01) ==
LOC: LAB 20:11
PROVIDERS: ATTEND Family Medicine
DX: R41.82 Altered mental status, unspecified (principal); R60.0 Localized edema; M79.671 Pain in right foot
CPT/HCPCS: 36415; 80053; 81000; 83880; 85379; 87088

== ENCOUNTER 2022-10-09 05:56 | Outpatient (CLI) | payer OTHER ==
[2022-10-09 10:09] LABS: PLATELET COUNT 353 K/uL (152-353)
== END 2022-10-09 18:52 | disposition home or self-care (01) ==
LOC: LAB 05:56
PROVIDERS: ATTEND Family Medicine
DX: E11.9 Type 2 diabetes mellitus without complications (principal)
CPT/HCPCS: 85027

== ENCOUNTER 2022-10-19 09:36 | Inpatient (IN) | payer OTHER | END 2022-11-18 17:36 | disposition still patient (30) | LOC: PAVA 09:36 → PAVB 11-08 13:53 | PROVIDERS: ADMIT Family Medicine; ATTEND Family Medicine ==

== ENCOUNTER 2022-10-23 09:17 | Outpatient (CLI) | payer OTHER ==
[2022-10-23 09:30] LABS: PLATELET COUNT 374 K/uL (152-353)
[2022-10-23 09:55] LABS: POTASSIUM 4.3 mmol/L (3.6-5.2)
== END 2022-10-23 19:21 | disposition home or self-care (01) ==
LOC: LAB 09:17
PROVIDERS: ATTEND Family Medicine
DX: E11.9 Type 2 diabetes mellitus without complications (principal); E03.8 Other specified hypothyroidism; I25.9 Chronic ischemic heart disease, unspecified
CPT/HCPCS: 80053; 82728; 83036; 84443; 85027

== ENCOUNTER 2022-11-06 07:50 | Outpatient (CLI) | payer OTHER ==
[2022-11-06 08:15] LABS: PLATELET COUNT 335 K/uL (152-353)
== END 2022-11-06 18:52 | disposition home or self-care (01) ==
LOC: LAB 07:50
PROVIDERS: ATTEND Family Medicine
DX: E11.9 Type 2 diabetes mellitus without complications (principal)
CPT/HCPCS: 85027

== ENCOUNTER 2022-11-18 18:56 | Inpatient (IN) | payer OTHER ==
[2022-12-18 06:27] LABS: PLATELET COUNT 356 K/uL (152-353)
== END 2022-12-19 08:52 | disposition still patient (30) ==
LOC: PAVB 18:56
PROVIDERS: ADMIT Family Medicine; ATTEND Family Medicine
DX: D64.9 Anemia, unspecified (principal); M62.81 Muscle weakness (generalized); R27.9 Unspecified lack of coordination; Z74.1 Need for assistance with personal care; R41.841 Cognitive communication deficit
CPT/HCPCS: 36415; 85027

== ENCOUNTER 2022-11-20 08:11 | Outpatient (CLI) | payer OTHER ==
[2022-11-20 08:57] LABS: PLATELET COUNT 290 K/uL (152-353)
== END 2022-11-20 19:24 | disposition home or self-care (01) ==
LOC: LAB 08:11
PROVIDERS: ATTEND Family Medicine
DX: E11.9 Type 2 diabetes mellitus without complications (principal)
CPT/HCPCS: 36415; 85027

== ENCOUNTER 2022-12-04 05:51 | Outpatient (CLI) | payer OTHER ==
[2022-12-04 05:59] LABS: PLATELET COUNT 297 K/uL (152-353)
== END 2022-12-04 19:09 | disposition home or self-care (01) ==
LOC: LAB 05:51
PROVIDERS: ATTEND Family Medicine
DX: E11.9 Type 2 diabetes mellitus without complications (principal)
CPT/HCPCS: 36415; 85027

== ENCOUNTER 2022-12-08 23:23 | Emergency (ER) | payer OTHER ==
[~2022-12-08] VITALS: Ht 167.6 cm; Wt 83.0 kg
[2022-12-08 23:25] VITALS: TEMP 97.9
[2022-12-09 02:03] VITALS: BP 120/53
== END 2022-12-09 02:18 ==
LOC: ED 23:23
DX: S09.90XA Unspecified injury of head, initial encounter (principal); W19.XXXA Unspecified fall, initial encounter
CPT/HCPCS: 99282

== ENCOUNTER 2022-12-09 14:10 | Emergency (ER) | payer OTHER ==
[~2022-12-09] VITALS: Ht 167.6 cm; Wt 83.1 kg
[2022-12-09 17:46] LABS: PLATELET COUNT 331 K/uL (152-353)
[2022-12-09 17:56] LABS: POTASSIUM 4.1 mmol/L (3.6-5.2)
[2022-12-09 18:59] VITALS: BP 103/40; TEMP 97.3
== END 2022-12-09 18:59 ==
LOC: ED 14:10
PROVIDERS: Family Medicine
DX: S49.92XA Unspecified injury of left shoulder and upper arm, initial encounter (principal); S79.912A Unspecified injury of left hip, initial encounter; W19.XXXA Unspecified fall, initial encounter; K57.90 Diverticulosis of intestine, part unspecified, without perforation or abscess without bleeding; I48.91 Unspecified atrial fibrillation
CPT/HCPCS: 36415; 80053; 81000; 83735; 84484; 85027; 87077; 87086; 87088; 87186; 93005; 96365; 99284; J0696

== ENCOUNTER 2023-01-01 04:57 | Outpatient (CLI) | payer OTHER ==
[2023-01-01 05:18] LABS: PLATELET COUNT 288 K/uL (152-353)
== END 2023-01-01 19:27 | disposition home or self-care (01) ==
LOC: LAB 04:57
PROVIDERS: ATTEND Family Medicine
DX: E11.9 Type 2 diabetes mellitus without complications (principal)
CPT/HCPCS: 85027

== ENCOUNTER 2023-01-10 16:26 | Outpatient (CLI) | payer OTHER | END 2023-01-10 21:23 | disposition home or self-care (01) | LOC: RAD 16:26 | PROVIDERS: ATTEND Family Medicine | DX: M25.552 Pain in left hip (principal); M25.551 Pain in right hip ==

== ENCOUNTER 2023-01-15 07:32 | Outpatient (CLI) | payer OTHER ==
[2023-01-15 08:00] LABS: PLATELET COUNT 289 K/uL (152-353)
== END 2023-01-15 23:58 | disposition home or self-care (01) ==
LOC: LAB 07:32
PROVIDERS: ATTEND Family Medicine
DX: E11.9 Type 2 diabetes mellitus without complications (principal)
CPT/HCPCS: 85027

== ENCOUNTER 2023-01-24 05:10 | Outpatient (CLI) | payer OTHER | END 2023-01-24 18:55 | disposition home or self-care (01) | LOC: LAB 05:10 | PROVIDERS: ATTEND Family Medicine | DX: E11.9 Type 2 diabetes mellitus without complications (principal) | CPT/HCPCS: 36415; 83036 ==

== ENCOUNTER 2023-01-29 05:05 | Outpatient (CLI) | payer OTHER ==
[2023-01-29 06:02] LABS: PLATELET COUNT 262 K/uL (152-353)
== END 2023-01-29 19:01 | disposition home or self-care (01) ==
LOC: LAB 05:05
PROVIDERS: ATTEND Family Medicine
DX: E11.9 Type 2 diabetes mellitus without complications (principal)
CPT/HCPCS: 85027

== ENCOUNTER 2023-01-31 10:32 | Day surgery (SDC) | payer OTHER ==
[~2023-01-31] VITALS: Ht 165.1 cm; Wt 68.0 kg
== END 2023-01-31 14:30 | disposition home or self-care (01) ==
LOC: OR 10:32
PROVIDERS: ATTEND Internal Medicine Gastroenterology
PROC: 0DD78ZX Extraction of Stomach, Pylorus, Via Natural or Artificial Opening Endoscopic, Diagnostic (ICD-10-PCS; principal; 2023-01-31)
PROC: 0D738ZZ Dilation of Lower Esophagus, Via Natural or Artificial Opening Endoscopic (ICD-10-PCS; 2023-01-31)
DX: K22.4 Dyskinesia of esophagus (principal); K22.2 Esophageal obstruction; E11.43 Type 2 diabetes mellitus with diabetic autonomic (poly)neuropathy; K31.84 Gastroparesis; K29.70 Gastritis, unspecified, without bleeding; I11.9 Hypertensive heart disease without heart failure; Z88.0 Allergy status to penicillin; Z88.1 Allergy status to other antibiotic agents
CPT/HCPCS: J2001; J2704; J7120

== ENCOUNTER 2023-02-22 13:23 | Outpatient (CLI) | payer OTHER | END 2023-02-22 19:26 | disposition home or self-care (01) | LOC: MAMMO 13:23 | PROVIDERS: ATTEND Family Medicine | DX: Z12.31 Encounter for screening mammogram for malignant neoplasm of breast (principal) ==

== ENCOUNTER 2023-02-26 05:18 | Outpatient (CLI) | payer OTHER ==
[2023-02-26 05:49] LABS: PLATELET COUNT 308 K/uL (152-353)
== END 2023-02-26 18:57 | disposition home or self-care (01) ==
LOC: LAB 05:18
PROVIDERS: ATTEND Family Medicine
DX: E11.9 Type 2 diabetes mellitus without complications (principal)
CPT/HCPCS: 36415; 85027